=== PATIENT | male | born 1960 | race Two or more races ===

== ENCOUNTER 2016-05-20 16:08 | Inpatient (IN) | payer OTHER ==
[2016-05-20 16:28] VITALS: BMI 32.1
--- NOTE | 2016-05-20 17:06 | HP ---
CIWA Score - CIWA Score Nausea/Vomitin-Mild Nausea/No Vomiting Muscle Tremors: 4-Moderate,w/Arms Extend Anxiety: 4-Mod. Anxious/Guarded Agitation: 4-Moderately Restless Paroxysmal Sweats: 1-Minimal Palms Moist Orientation: 3-Disoriented Date>2 days Tacttile Disturbances: 0-None Auditory Disturbances: 0-None Visual Disturbances: 0-None Headache: 0-None Present CIWA-Ar Total Score: 17 Admission ROS S - HPI Chief Complaint: withdrawal sx Allergies/Adverse Reactions: Allergies Allergy/AdvReac Type Severity Reaction Status Date / Time tomato Allergy Severe Rash Verified 08/14/15 16:04 No Known Drug Allergies Allergy Verified 08/14/15 17:15 pasta Allergy Severe Rash Uncoded 08/14/15 16:04 History of Present Illness: 55 years old male with long history of alcohol nicotine dependence, denies medical issue denies mental illness is admitted to detox Exam Limitations: No Limitations - Ebola screening Have you traveled outside of the country in the last 21 days: No Have you had contact with anyone from an Ebola affected area: No Have you been sick,other than usual withdrawal symptoms: No Do you have a fever: No - Review of Systems Constitutional: Chills, Changes in sleep, Weight Stable EENT: reports: No Symptoms Reported Patient History - Patient Medical History Hx Asthma: No Hx Chronic Obstructive Pulmonary Disease (COPD): No Hx Cardiac Disorders: No Hx Hypertension: No Hx Seizures: No Hx Diabetes: Yes (Type II) Hx Gastrointestinal Disorders: No Hx Genitourinary Disorders: No Hx Renal Disease (ESRD): No Hx Depression: Yes Hx Suicide Attempt: No Hx Schizophrenia: No - Patient Surgical History Past Surgical History: Yes Other Surgical History: Two toes amputated from L foot in 2013 - PPD History Date: 08/16/15 - Smoking Cessation Smoking history: Current every day smoker Aproximately how many cigarettes per day: 10 Hx Chewing Tobacco Use: No - Substances Abused Alcohol Route: Oral Frequency: Daily Amount used: ashelyt nena Age of first use: 15 Date of Last Use: 05/20/16 Admission Physical Exam S - Vital Signs Vital Signs: Vital Signs - 24 hr 05/20/16 16:26 Temperature 98.6 F Pulse Rate 100 H Respiratory 18 Rate Blood Pressure 138/88 BHS Breath Alcohol Content Breath Alcohol Content: 0.109 Urine Drug Screen - Results Drug Screen Negative: No Urine Drug Screen Results: OPI-Opiates, MTD-Methadone
[2016-05-20] MEDS ORDERED: LOPERAMIDE HCL 2 MG CAPSULE PO PRN (17:13)
[2016-05-20] MEDS ORDERED: MENTHOL/PHENOL 1 EACH UD MM PRN (17:13)
[2016-05-20] MEDS ORDERED: MAG HYDROX/AL HYDROX/SIMETH 30 ML UNIT-DOSE CUP PO PRN (17:13)
[2016-05-20] MEDS ORDERED: P-EPHED 60MG/TRIPROLIDI 2.5MG TABLET PO PRN (17:13)
[2016-05-20] MEDS ORDERED: ACETAMINOPHEN 325 MG TABLET (FP) PO PRN (17:13)
[2016-05-20] MEDS ORDERED: chlordiazePOXIDE HCL 25 MG CAPSULE PO PRN (17:13)
[2016-05-20] MEDS ORDERED: MAGNESIUM HYDROX 2400MG/30ML ORAL SUSPENSION 30 ML CUP PO PRN (17:13)
[2016-05-20] MEDS ORDERED: MAGNESIUM CITRATE 300 ML BOTTLE PO PRN (17:13)
[2016-05-20] MEDS ORDERED: NICOTINE POLACRILEX 4 MG GUM BC PRN (17:13)
[2016-05-20] MEDS ORDERED: guaiFENesin/D-METHORPHAN HB 10 ML UNIT-DOSE CUPS PO PRN (17:13)
--- NOTE | 2016-05-20 17:13 | HP ---
CIWA Score - CIWA Score Nausea/Vomitin-Mild Nausea/No Vomiting Muscle Tremors: 4-Moderate,w/Arms Extend Anxiety: 4-Mod. Anxious/Guarded Agitation: 4-Moderately Restless Paroxysmal Sweats: 1-Minimal Palms Moist Orientation: 3-Disoriented Date>2 days Tacttile Disturbances: 0-None Auditory Disturbances: 0-None Visual Disturbances: 0-None Headache: 0-None Present CIWA-Ar Total Score: 17 Admission [facility] - HPI Chief Complaint: withdrawal sx Allergies/Adverse Reactions: Allergies Allergy/AdvReac Type Severity Reaction Status Date / Time tomato Allergy Severe Rash Verified 08/14/15 16:04 No Known Drug Allergies Allergy Verified 08/14/15 17:15 pasta Allergy Severe Rash Uncoded 08/14/15 16:04 History of Present Illness: 55 years old male with long history of alcohol nicotine opiate dependence, denies medical mental illness on methadone maintenance program 40 mg verification pending is admitted to detox Exam Limitations: No Limitations - Ebola screening Have you traveled outside of the country in the last 21 days: No Have you had contact with anyone from an Ebola affected area: No Have you been sick,other than usual withdrawal symptoms: No Do you have a fever: No - Review of Systems Constitutional: Chills, Changes in sleep, Weight Stable EENT: reports: No Symptoms Reported Respiratory: reports: No Symptoms reported Cardiac: reports: No Symptoms Reported GI: reports: Nausea, Indigestion : reports: No Symptoms Reported Musculoskeletal: reports: No Symptoms Reported Integumentary: reports: No Symptoms Reported Neuro: reports: Tremors Endocrine: reports: No Symptoms Reported Hematology: reports: No Symptoms Reported Psychiatric: reports: Judgement Intact, Mood/Affect Appropiate Other Systems: Reviewed and Negative Patient History - Patient Medical History Hx Anemia: No Hx Asthma: No Hx Chronic Obstructive Pulmonary Disease (COPD): No Hx Cancer: No Hx Cardiac Disorders: No Hx Congestive Heart Failure: No Hx Hypertension: No Hx Hypercholesterolemia: No Hx Pacemaker: No HX Cerebrovascular Accident: No Hx Seizures: No Hx Dementia: No Hx Diabetes: No Hx Gastrointestinal Disorders: No Hx Liver Disease: No Hx Genitourinary Disorders: No Hx Sexually Transmitted Disorders: No Hx Renal Disease (ESRD): No Hx Thyroid Disease: No Hx Human Immunodeficiency Virus (HIV): No Hx Hepatitis C: Yes Hx Depression: No Hx Suicide Attempt: No Hx Bipolar Disorder: No Hx Schizophrenia: No - Patient Surgical History Past Surgical History: Yes Hx Neurologic Surgery: No Hx Cataract Extraction: No Hx Cardiac Surgery: No Hx Lung Surgery: No Hx Breast Surgery: No Hx Breast Biopsy: No Hx Abdominal Surgery: No Hx Appendectomy: No Hx Cholecystectomy: No Hx Genitourinary Surgery: No Hx Orthopedic Surgery: No Other Surgical History: Two toes amputated from L foot in 2014 Anesthesia Reaction: No - PPD History Previous Implant?: Yes Documented Results: Negative w/proof Implanted On Prior R Admission?: Yes Date: 08/16/15 PPD to be Administered?: No - Smoking Cessation Smoking history: Current every day smoker Aproximately how many cigarettes per day: 15 Cigars Per Day: 0 Hx Chewing Tobacco Use: No Initiated information on smoking cessation: Yes 'Breaking Loose' booklet given: 05/20/16 - Substance & Tx. History Hx Alcohol Use: Yes Hx Substance Use: Yes Substance Use Type: Alcohol, Heroin, Opiates Hx Substance Use Treatment: Yes - Substances Abused Alcohol Route: Oral Frequency: Daily Amount used: pint volka Age of first use: 15 Date of Last Use: 05/20/16 Family Disease History - Family Disease History Family Disease History: [place]: Brother (), Other: Mother (93 years old ) Admission Physical Exam BHS - Vital Signs Vital Signs: Vital Signs - 24 hr 05/20/16 16:26 Temperature 98.6 F Pulse Rate 100 H Respiratory 18 Rate Blood Pressure 138/88 - Physical General Appearance: Yes: Appropriately Dressed, Moderate Distress, Alcohol on Breath, Obese, Tremorous, Irritable, Sweating, Anxious HEENTM: Yes: Hearing grossly Normal, Normal ENT Inspection, Normocephalic, Normal Voice Respiratory: Yes: Chest Non-Tender, Lungs Clear, Normal Breath Sounds, No Respiratory Distress, No Accessory Muscle Use Neck: Yes: Supple, Trachea in good position Breast: Yes: Breasts Symetrical Cardiology: Yes: Regular Rhythm, S1, S2, Tachycardia Abdominal: Yes: Non Tender, Soft Genitourinary: Yes: Within Normal Limits Back: Yes: Normal Inspection Musculoskeletal: Yes: Gait Steady (left foot 2nd + 3rd toes missing) Extremities: Yes: Normal Range of Motion, Non-Tender, Tremors Neurological: Yes: Alert, Motor Strength 5/5, Normal Mood/Affect, Normal Response Integumentary: Yes: Warm, Moist Lymphatic: Yes: Within Normal Limits - Diagnostic (1) GERD (gastroesophageal reflux disease) Current Visit: Yes Status: Acute Qualifiers: Esophagitis presence: without esophagitis Qualified Code(s): K21.9 - Gastro-esophageal reflux disease without esophagitis (2) Methadone maintenance therapy patient Current Visit: Yes Status: Acute Comment: 40 mg verification pending (3) Alcohol dependence with uncomplicated withdrawal Current Visit: Yes Status: Acute (4) Nicotine dependence Current Visit: Yes Status: Acute Qualifiers: Nicotine product type: cigarettes Substance use status: in withdrawal Qualified Code(s): F17.213 - Nicotine dependence, cigarettes, with withdrawal (5) Hepatitis C antibody test positive Current Visit: Yes Status: Chronic Comment: scheduled for treatment after rehab Cleared for Admission [facility] - Detox or Rehab [facility] Level of Care: Medically Managed Detox Regimen/Protocol: Librium [facility] Breath Alcohol Content Breath Alcohol Content: 0.109 Urine Drug Screen - Results Drug Screen Negative: No Urine Drug Screen Results: OPI-Opiates, MTD-Methadone
[2016-05-20] MEDS ORDERED: chlordiazePOXIDE HCL 25 MG CAPSULE PO ONE (18:45)
[2016-05-20] MEDS: chlordiazePOXIDE HCL 25 MG CAPSULE PO SCH (22:30)
[2016-05-20] MEDS: diphenhydrAMINE HCL 50 MG CAPSULE PO PRN (22:30)
[2016-05-20] MEDS: RANITIDINE HCL 150 MG TABLET (FP) PO SCH (22:30)
[2016-05-20] MEDS: THIAMINE HCL 100 MG TABLET (FP) PO SCH (22:30)
[2016-05-20 22:42] LABS: URINE APPEARANCE CLEAR; URINE BILIRUBIN NEGATIVE (NEGATIVE); URINE BLOOD NEGATIVE (NEGATIVE); URINE COLOR LTYELLOW; URINE GLUCOSE (UA) 3+ (NEGATIVE); URINE KETONE TRACE (NEGATIVE); URINE LEUK ESTERASE NEGATIVE (NEGATIVE); URINE NITRITE NEGATIVE (NEGATIVE); URINE UROBILINOGEN NEGATIVE E.U./dl (0.2-1.0)
[2016-05-20 22:47] LABS: URINE PROTEIN 1+ (NEGATIVE)
[2016-05-20 22:48] LABS: URINE BACTERIA RARE /hpf (NONE SEEN); URINE RBC <1 /hpf (0-3); URINE WBC 2 /hpf (3-5)
[2016-05-21] MEDS: chlordiazePOXIDE HCL 25 MG CAPSULE PO SCH ×4 (05:59→22:12)
[2016-05-21] MEDS ORDERED: METHADONE HCL 40 MG DISPERSABLE TABLET PO ONE (09:22)
[2016-05-21 10:03] LABS: MCH 29.6 pg (25.7-33.7); MEAN CELL VOLUME 89.9 fl (80-96); MEAN PLT VOLUME 9.9 fl (7.5-11.1); PLATELET COUNT 122 K/MM3 (134-434); WHITE BLOOD COUNT 5.3 K/mm3 (4.0-10.0)
[2016-05-21] MEDS: NICOTINE 21 MG/24 HOURS TOPICAL PATCH TD SCH (10:35)
[2016-05-21] MEDS: PRENATAL VITAMINS W/ FOLIC ACID TABLET (FP) PO SCH (10:37)
[2016-05-21] MEDS: RANITIDINE HCL 150 MG TABLET (FP) PO SCH ×2 (10:37→22:12)
--- NOTE | 2016-05-21 10:52 | PN ---
S CIWA - CIWA Score Nausea/Vomitin-No Nausea/No Vomiting Muscle Tremors: 4-Moderate,w/Arms Extend Anxiety: 3 Agitation: 4-Moderately Restless Paroxysmal Sweats: 3 Orientation: 0-Oriented Tacttile Disturbances: 0-None Auditory Disturbances: 0-None Visual Disturbances: 0-None Headache: 0-None Present CIWA-Ar Total Score: 14 BHS Progress Note (SOAP) Subjective: shakes sweats chills last night interrupted sleep Objective: 05/21/16 10:51 Vital Signs Temperature 98.2 F 05/21/16 10:18 Pulse Rate 83 05/21/16 10:18 Respiratory Rate 18 05/21/16 10:18 Blood Pressure 139/93 05/21/16 10:18 O2 Sat by Pulse Oximetry (%) Laboratory Tests 05/20/16 05/21/16 05/21/16 19:38 07:00 07:00 WBC 5.3 D RBC 4.86 Hgb 14.4 Hct 43.7 MCV 89.9 MCHC 33.0 RDW 14.0 Plt Count 122 L D MPV 9.9 Sodium 135 L Potassium 4.0 Chloride 99 Urine Color Ltyellow Urine Appearance Clear Urine pH 5.0 D Ur Specific [place] 1.029 Urine Protein 1+ H Urine Glucose (UA) 3+ H Urine Ketones Trace H Urine Blood Negative Urine Nitrite Negative Urine Bilirubin Negative Urine Urobilinogen Negative Ur Leukocyte Esterase Negative Urine RBC <1 Urine WBC 2 Ur Epithelial Cells Rare Urine Bacteria Rare awake/alert ambulating no acute distress Assessment: 05/21/16 10:52 withdrawal sx Plan: continue detox increase fluids
[2016-05-21 11:15] LABS: ALBUMIN 3.6 g/dl (3.4-5.0); ALK PHOS 122 U/L (45-117); ANION GAP 9 (8-16); BILIRUBIN,TOTAL 0.5 mg/dL (0.2-1.0); CALCIUM 9.3 mg/dL (8.5-10.1); CO2 27 mmol/L (21-32); CREATININE 0.8 mg/dL (0.7-1.3); SGOT/AST 23 U/L (15-37); SGPT/ALT 32 U/L (12-78); TOT PROT 7.6 g/dl (6.4-8.2)
[2016-05-21 11:38] LABS: GLUCOSE,RANDOM 329 mg/dL (74-106)
--- NOTE | 2016-05-21 13:55 | EKG ---
Test Reason : Blood Pressure : / mmHG Vent. Rate : 086 BPM Atrial Rate : 086 BPM P-R Int : 138 ms QRS Dur : 098 ms QT Int : 366 ms P-R-T Axes : 043 -10 -04 degrees QTc Int : 437 ms NORMAL SINUS RHYTHM MODERATE VOLTAGE CRITERIA FOR LVH, MAY BE NORMAL VARIANT BORDERLINE ECG NO PREVIOUS ECGS AVAILABLE Confirmed by ALFONSO STANLEY MD ([id number]) on 05/21/2016 1:54:59 PM Referred By: Deniz Chambers Confirmed By:ALFONSO STANLEY MD
[2016-05-21] MEDS ORDERED: INSULIN (NOVOLOG) ASPART 100 UNITS/ML 10ML VIAL ONE (16:41)
[2016-05-21] MEDS: INSULIN SLIDING SCALE (NOVOLOG) 1 VIAL SQ SCH (16:59)
[2016-05-21] MEDS: THIAMINE HCL 100 MG TABLET (FP) PO SCH (22:11)
[2016-05-21] MEDS: diphenhydrAMINE HCL 50 MG CAPSULE PO PRN (22:11)
[2016-05-22] MEDS: chlordiazePOXIDE HCL 25 MG CAPSULE PO SCH ×3 (05:31→17:44)
[2016-05-22] MEDS: METHADONE HCL 40 MG DISPERSABLE TABLET PO SCH (05:33)
[2016-05-22] MEDS ORDERED: INSULIN (NOVOLOG) ASPART 100 UNITS/ML 10ML VIAL ONE ×3 (07:09→17:39)
[2016-05-22] MEDS: INSULIN SLIDING SCALE (NOVOLOG) 1 VIAL SQ SCH ×3 (07:13→17:45)
[2016-05-22] MEDS ORDERED: AMMONIUM LACTATE 12% LOTION 225 GM BOTTLE TP PRN (10:31)
[2016-05-22] MEDS: NICOTINE 21 MG/24 HOURS TOPICAL PATCH TD SCH (10:32)
[2016-05-22] MEDS: RANITIDINE HCL 150 MG TABLET (FP) PO SCH ×2 (10:34→22:08)
[2016-05-22] MEDS: PRENATAL VITAMINS W/ FOLIC ACID TABLET (FP) PO SCH (10:34)
[2016-05-22] MEDS: BACITRACIN 0.9 GM PACKET TP SCH ×2 (12:01→22:08)
--- NOTE | 2016-05-22 12:03 | PN ---
[facility] CIWA - CIWA Score Nausea/Vomitin-Mild Nausea/No Vomiting Muscle Tremors: 4-Moderate,w/Arms Extend Anxiety: 4-Mod. Anxious/Guarded Agitation: 3 Paroxysmal Sweats: 3 Orientation: 0-Oriented Tacttile Disturbances: 2-Mild Itch/Numbness/Burn Auditory Disturbances: 0-None Visual Disturbances: 0-None Headache: 3-Moderate CIWA-Ar Total Score: 20 S Progress Note (SOAP) Subjective: Sweating, H/A, Tremors. Objective: PT. A & O X 3, OBSERVED AMBULATING NO UNIT. FOOT ULCER NOTED ON MEDIAL BALL OF LEFT FOOT. NO BLEEDING, UNUSUAL DISCHARGE, OR SIGNS OF INFECTION NOTED. 05/22/16 11:57 Vital Signs Temperature 98.2 F 05/22/16 09:50 Pulse Rate 88 05/22/16 09:50 Respiratory Rate 18 05/22/16 09:50 Blood Pressure 122/98 05/22/16 09:50 O2 Sat by Pulse Oximetry (%) Laboratory Last Values WBC 5.3 K/mm3 (4.0-10.0) D 05/21/16 07:00 RBC 4.86 M/mm3 (4.00-5.60) 05/21/16 07:00 Hgb 14.4 GM/dL (11.7-16.9) 05/21/16 07:00 Hct 43.7 % (35.4-49) 05/21/16 07:00 MCV 89.9 fl (80-96) 05/21/16 07:00 MCHC 33.0 g/dl (32.0-35.9) 05/21/16 07:00 RDW 14.0 % (11.9-15.9) 05/21/16 07:00 Plt Count 122 K/MM3 (134-434) L D 05/21/16 07:00 MPV 9.9 fl (7.5-11.1) 05/21/16 07:00 Sodium 135 mmol/L (136-145) L 05/21/16 07:00 Potassium 4.0 mmol/L (3.5-5.1) 05/21/16 07:00 Chloride 99 mmol/L (98-107) 05/21/16 07:00 Carbon Dioxide 27 mmol/L (21-32) 05/21/16 07:00 Anion Gap 9 (8-16) 05/21/16 07:00 BUN 15 mg/dL (7-18) 05/21/16 07:00 Creatinine 0.8 mg/dL (0.7-1.3) 05/21/16 07:00 Creat Clearance w eGFR > 60 (>60) 05/21/16 07:00 POC Glucometer 275 UNITS (()) 05/22/16 11:01 Random Glucose 329 mg/dL (74-106) H* D 05/21/16 07:00 Calcium 9.3 mg/dL (8.5-10.1) 05/21/16 07:00 Total Bilirubin 0.5 mg/dL (0.2-1.0) D 05/21/16 07:00 AST 23 U/L (15-37) 05/21/16 07:00 ALT 32 U/L (12-78) 05/21/16 07:00 Alkaline Phosphatase 122 U/L (45-117) H 05/21/16 07:00 Total Protein 7.6 g/dl (6.4-8.2) 05/21/16 07:00 Albumin 3.6 g/dl (3.4-5.0) 05/21/16 07:00 Urine Color Ltyellow 05/20/16 19:38 Urine Appearance Clear 05/20/16 19:38 Urine pH 5.0 (5.0-8.0) D 05/20/16 19:38 Ur Specific [place] 1.029 (1.001-1.035) 05/20/16 19:38 Urine Protein 1+ (NEGATIVE) H 05/20/16 19:38 Urine Glucose (UA) 3+ (NEGATIVE) H 05/20/16 19:38 Urine Ketones Trace (NEGATIVE) H 05/20/16 19:38 Urine Blood Negative (NEGATIVE) 05/20/16 19:38 Urine Nitrite Negative (NEGATIVE) 05/20/16 19:38 Urine Bilirubin Negative (NEGATIVE) 05/20/16 19:38 Urine Urobilinogen Negative E.U./dl (0.2-1.0) 05/20/16 19:38 Ur Leukocyte Esterase Negative (NEGATIVE) 05/20/16 19:38 Urine RBC <1 /hpf (0-3) 05/20/16 19:38 Urine WBC 2 /hpf (3-5) 05/20/16 19:38 Ur Epithelial Cells Rare /hpf (FEW) 05/20/16 19:38 Urine Bacteria Rare /hpf (NONE SEEN) 05/20/16 19:38 RPR Titer Nonreactive (NONREACTIVE) 05/21/16 07:00 LABS NOTED. Assessment: 05/22/16 11:59 WITHDRAWAL SYMPTOMS. Plan: CONTINUE DETOX. BACITRACIN TO APPLIED TO FOOT ULCER AND THEN COVERED WITH GAUZE. PATIENT ADVISED TO FOLLOW-UP WITH CALL CENTER DIRECTOR / MARKET CONSULTANT FOR FOOT ULCER AND WITH CALL CENTER DIRECTOR FOR ABNORMAL ADMISSION LAB VALUES AFTER DISCHARGE FROM DETOX.
[2016-05-22] MEDS: THIAMINE HCL 100 MG TABLET (FP) PO SCH (22:08)
[2016-05-22] MEDS: chlordiazePOXIDE 5 MG CAPSULE PO SCH (22:08)
[2016-05-22] MEDS: diphenhydrAMINE HCL 50 MG CAPSULE PO PRN (22:09)
--- NOTE | 2016-05-22 22:12 | PN ---
S Progress Note Note: received nurse call patient reports diabetes ii treated with metformin 500 mg bid at home change to ncs diet begin metformin 500 mg bid hgb a1c dietary consultation continue detox
[2016-05-23] MEDS: METHADONE HCL 40 MG DISPERSABLE TABLET PO SCH (05:42)
[2016-05-23] MEDS: chlordiazePOXIDE 5 MG CAPSULE PO SCH ×3 (05:42→17:20)
[2016-05-23] MEDS ORDERED: INSULIN (NOVOLOG) ASPART 100 UNITS/ML 10ML VIAL ONE ×3 (07:29→17:03)
[2016-05-23] MEDS: metFORMIN HCL 500 MG TABLET (FP) PO SCH ×2 (07:30→17:20)
[2016-05-23] MEDS: INSULIN SLIDING SCALE (NOVOLOG) 1 VIAL SQ SCH ×3 (07:31→17:20)
[2016-05-23] MEDS: PRENATAL VITAMINS W/ FOLIC ACID TABLET (FP) PO SCH (10:28)
[2016-05-23] MEDS: RANITIDINE HCL 150 MG TABLET (FP) PO SCH ×2 (10:29→22:22)
--- NOTE | 2016-05-23 10:30 | PN ---
BHS Progress Note (SOAP) Subjective: sweats shakes i need my wound care done Objective: 05/23/16 10:27 Vital Signs Temperature 97.3 F L 05/23/16 10:10 Pulse Rate 87 05/23/16 10:10 Respiratory Rate 18 05/23/16 10:10 Blood Pressure 134/96 05/23/16 10:10 O2 Sat by Pulse Oximetry (%) Laboratory Tests 05/20/16 05/21/16 05/21/16 19:38 07:00 07:00 WBC 5.3 D RBC 4.86 Hgb 14.4 Hct 43.7 MCV 89.9 MCHC 33.0 RDW 14.0 Plt Count 122 L D MPV 9.9 Sodium 135 L Potassium 4.0 Chloride 99 Carbon Dioxide 27 Anion Gap 9 BUN 15 Creatinine 0.8 Creat Clearance w eGFR > 60 POC Glucometer Random Glucose 329 H* D Calcium 9.3 Total Bilirubin 0.5 D AST 23 ALT 32 Alkaline Phosphatase 122 H Total Protein 7.6 Albumin 3.6 Urine Color Ltyellow Urine Appearance Clear Urine pH 5.0 D Ur Specific [place] 1.029 Urine Protein 1+ H Urine Glucose (UA) 3+ H Urine Ketones Trace H Urine Blood Negative Urine Nitrite Negative Urine Bilirubin Negative Urine Urobilinogen Negative Ur Leukocyte Esterase Negative Urine RBC <1 Urine WBC 2 Ur Epithelial Cells Rare Urine Bacteria Rare RPR Titer 05/21/16 05/21/16 05/22/16 07:00 16:12 05:33 WBC RBC Hgb Hct MCV MCHC RDW Plt Count MPV Sodium Potassium Chloride Carbon Dioxide Anion Gap BUN Creatinine Creat Clearance w eGFR POC Glucometer 349 338 Random Glucose Calcium Total Bilirubin AST ALT Alkaline Phosphatase Total Protein Albumin Urine Color Urine Appearance Urine pH Ur Specific [place] Urine Protein Urine Glucose (UA) Urine Ketones Urine Blood Urine Nitrite Urine Bilirubin Urine Urobilinogen Ur Leukocyte Esterase Urine RBC Urine WBC Ur Epithelial Cells Urine Bacteria RPR Titer Nonreactive 05/22/16 05/22/16 05/22/16 11:01 16:40 20:57 WBC RBC Hgb Hct MCV MCHC RDW Plt Count MPV Sodium Potassium Chloride Carbon Dioxide Anion Gap BUN Creatinine Creat Clearance w eGFR POC Glucometer 275 418 317 Random Glucose Calcium Total Bilirubin AST ALT Alkaline Phosphatase Total Protein Albumin Urine Color Urine Appearance Urine pH Ur Specific [place] Urine Protein Urine Glucose (UA) Urine Ketones Urine Blood Urine Nitrite Urine Bilirubin Urine Urobilinogen Ur Leukocyte Esterase Urine RBC Urine WBC Ur Epithelial Cells Urine Bacteria RPR Titer 05/23/16 05:40 WBC RBC Hgb Hct MCV MCHC RDW Plt Count MPV Sodium Potassium Chloride Carbon Dioxide Anion Gap BUN Creatinine Creat Clearance w eGFR POC Glucometer 304 Random Glucose Calcium Total Bilirubin AST ALT Alkaline Phosphatase Total Protein Albumin Urine Color Urine Appearance Urine pH Ur Specific [place] Urine Protein Urine Glucose (UA) Urine Ketones Urine Blood Urine Nitrite Urine Bilirubin Urine Urobilinogen Ur Leukocyte Esterase Urine RBC Urine WBC Ur Epithelial Cells Urine Bacteria RPR Titer awake/alert ambulating no acute distress Assessment: 05/23/16 10:28 withdrawal sx Plan: continue detox increase fluids continue wound care amoxicillan/cl 875mg x 14days d/c in am
[2016-05-23] MEDS: BACITRACIN 0.9 GM PACKET TP SCH ×2 (11:13→22:21)
[2016-05-23] MEDS: NICOTINE 21 MG/24 HOURS TOPICAL PATCH TD SCH (11:14)
[2016-05-23] MEDS: AMOX TR/POT CLAV 875MG/125MG TABLETS (FP) PO SCH (17:20)
[2016-05-23] MEDS: chlordiazePOXIDE HCL 10 MG CAPSULE PO SCH (22:21)
[2016-05-23] MEDS: diphenhydrAMINE HCL 50 MG CAPSULE PO PRN (22:22)
[2016-05-23] MEDS: THIAMINE HCL 100 MG TABLET (FP) PO SCH (22:22)
[2016-05-24] MEDS: METHADONE HCL 40 MG DISPERSABLE TABLET PO SCH (05:32)
[2016-05-24] MEDS: chlordiazePOXIDE HCL 10 MG CAPSULE PO SCH (05:33)
[2016-05-24 06:35] VITALS: BP 116/68; PULSE 68; TEMP 98.2
[2016-05-24] MEDS ORDERED: INSULIN (NOVOLOG) ASPART 100 UNITS/ML 10ML VIAL ONE (07:45)
[2016-05-24] MEDS: metFORMIN HCL 500 MG TABLET (FP) PO SCH (07:46)
[2016-05-24] MEDS: AMOX TR/POT CLAV 875MG/125MG TABLETS (FP) PO SCH (07:46)
[2016-05-24] MEDS: INSULIN SLIDING SCALE (NOVOLOG) 1 VIAL SQ SCH (07:47)
--- NOTE | 2016-05-24 08:16 | PN ---
S Progress Note (SOAP) Subjective: ALERT,NO COMPLAINT Objective: 05/24/16 08:14 Vital Signs Temperature 98.2 F 05/24/16 06:35 Pulse Rate 68 05/24/16 06:35 Respiratory Rate 18 05/24/16 06:35 Blood Pressure 116/68 05/24/16 06:35 O2 Sat by Pulse Oximetry (%) Assessment: 05/24/16 08:14 DETOX COMPLETED,NO WITHDRAWAL SYMPTOM Plan: DISCHARGE TODAY,FOLLOW UP WITH AFTER CARE PROGRAM AND PMD FOR MEDICAL PROBLEM
--- NOTE | 2016-05-24 08:18 | DS ---
[facility] Detox Discharge Summary Admission Date: 05/20/16 Discharge Date: 05/24/16 - History Present History: Alcohol Dependence, Cocaine Dependence Additional Comments: FOLLOW UP WITH AFTER CARE PROGRAM ARRANGEMENT AND PMD FOR MEDICAL PROBLEM INCLUDING DIABETIC AND HEPATITIS C EVALUATION AND MANAGEMENT Pertinent Past History: TYPE 2 DM HEPATITIS C GERD NICOTINE DEPENDENCE - Physical Exam Results Vital Signs: Vital Signs Temperature 98.2 F 05/24/16 06:35 Pulse Rate 68 05/24/16 06:35 Respiratory Rate 18 05/24/16 06:35 Blood Pressure 116/68 05/24/16 06:35 O2 Sat by Pulse Oximetry (%) - Treatment Hospital Course: Detox Protocol Followed, Detoxed Safely, Responded well, Discharged Condition Good Patient has Accepted a Rehab Referral to: DECLINED - Medication Discharge Medications: Ambulatory Orders Ibuprofen [Motrin -] 600 mg PO TID PRN 08/14/15 Omeprazole [Prilosec] 20 mg PO DAILY 08/14/15 Metformin HCl [Glucophage -] 1,000 mg PO BID 05/22/16 - AMA Did Patient Leave Against Medical Advice: No
== END 2016-05-24 09:16 | disposition home or self-care (01) | DRG 773 ==
LOC: YASAS 16:08 → Y6N 18:25
PROVIDERS: ADMIT Internal Medicine Addiction Medicine; ATTEND Internal Medicine Addiction Medicine
PROC: HZ2ZZZZ Detoxification Services for Substance Abuse Treatment (ICD-10-PCS; principal; 2016-05-24)
DX: F11.20 Opioid dependence, uncomplicated (principal); F10.230 Alcohol dependence with withdrawal, uncomplicated; F17.213 Nicotine dependence, cigarettes, with withdrawal; B18.2 Chronic viral hepatitis C; K21.9 Gastro-esophageal reflux disease without esophagitis
CPT/HCPCS: 36415; 80053; 81003; 81015; 83036; 85027; 86593; 93005; 93010

== ENCOUNTER 2018-11-29 13:32 | Inpatient (IN) | payer OTHER ==
[2018-11-29 17:51] VITALS: BMI 27.3
--- NOTE | 2018-11-29 20:30 | HP ---
COWS - Scale Resting Pulse: 0= [place] 80 or Below Sweatin=Flushed/Facial Moisture Restless Observation: 0= Sits Still Pupil Size: 1= Pupils >than Normal Bone or Joint Aches: 4=Acute Joint/Muscle Pain Runny Nose/ Eye Tearin= Runny Nose/Eyes GI Upset > 30mins: 3= Vomiting/Diarrhea (vomiting x 4, diarrhea x 2) Tremor Observation: 4= Gross Tremor/Twitching Yawning Observation: 0= None Anxiety or Irritability: 2=Irritable/Anxious Goose Flesh Skin: 0=Smooth Skin COWS Score: 18 CIWA Score Nausea/Vomitin (v omiting x 4) Muscle Tremors: 4-Moderate,w/Arms Extend Anxiety: 3 Agitation: 3 Paroxysmal Sweats: No Perspiration Orientation: 0-Oriented Tacttile Disturbances: 0-None Auditory Disturbances: 0-None Visual Disturbances: 0-None Headache: 4-Moderately Severe CIWA-Ar Total Score: 17 - Admission Criteria OASAS Guidelines: Admission for Medically Managed Detox: Requires at least one of the followin. CIWA greater than 12 2. Seizures within the past 24 hours 3. Delirium tremens within the past 24 hours 4. Hallucinations within the past 24 hours 5. Acute intervention needed for co occurring medical disorder 6. Acute intervention needed for co occurring psychiatric disorder 7. Severe withdrawal that cannot be handled at a lower level of care (continued vomiting, continued diarrhea, abnormal vital signs) requiring intravenous medication and/or fluids 8. Admission ROS [facility] Chief Complaint: Heroin and alcohol withdrawal symptoms Allergies/Adverse Reactions: Allergies Allergy/AdvReac Type Severity Reaction Status Date / Time tomato Allergy Severe Rash Verified 05/20/16 17:44 No Known Drug Allergies Allergy Verified 05/20/16 17:44 pasta Allergy Severe Rash Uncoded 05/20/16 17:44 History of Present Illness: 58 years old male with 37 years of heroin dependence and 45 years of alcohol dependence is seeking admission to detox. Patient has been in detox multiple times and reports 3 years of sobriety. Patient has history of hypertension, Hep. C and GERD. He denies [id number] attempt nd suicidal ideation at this time. Exam Limitations: No Limitations - Ebola screening Have you traveled outside of the country in the last 21 days: No Have you had contact with anyone from an Ebola affected area: No Have you been sick,other than usual withdrawal symptoms: No Do you have a fever: No - Review of Systems Constitutional: Chills, Malaise, Changes in sleep EENT: reports: No Symptoms Reported Respiratory: reports: No Symptoms reported Cardiac: reports: No Symptoms Reported GI: reports: Nausea, Poor Appetite, Poor Fluid Intake, Vomiting, Abdominal cramping : reports: No Symptoms Reported Musculoskeletal: reports: Back Pain, Joint Pain, Muscle Pain Integumentary: reports: Dryness, Flushing Neuro: reports: Headache, Tremors, Ataxia Hematology: reports: No Symptoms Reported Psychiatric: reports: Mood/Affect Appropiate, Orientated x3 Other Systems: Reviewed and Negative Patient History - Patient Medical History Hx Anemia: No Hx Asthma: No Hx Chronic Obstructive Pulmonary Disease (COPD): No Hx Cancer: No Hx Cardiac Disorders: No Hx Congestive Heart Failure: No Hx Hypertension: Yes Hx Hypercholesterolemia: No Hx Pacemaker: No HX Cerebrovascular Accident: No Hx Seizures: No Hx Dementia: No Hx Diabetes: No Hx Gastrointestinal Disorders: Yes (GERD- Fndto0g) Hx Liver Disease: No Hx Genitourinary Disorders: No Hx Sexually Transmitted Disorders: No Hx Renal Disease (ESRD): No Hx Thyroid Disease: No Hx Human Immunodeficiency Virus (HIV): No (Negative 2017) Hx Hepatitis C: Yes (Not on treatment) Hx Depression: No Hx Suicide Attempt: No (Denies suicide attempt / suicidal ideation at this time) Hx Bipolar Disorder: No Hx Schizophrenia: No - Patient Surgical History Past Surgical History: Yes Hx Neurologic Surgery: No Hx Cataract Extraction: No Hx Cardiac Surgery: No Hx Lung Surgery: No Hx Breast Surgery: No Hx Breast Biopsy: No Hx Abdominal Surgery: No Hx Appendectomy: No Hx Cholecystectomy: No Hx Genitourinary Surgery: No Hx Orthopedic Surgery: No Other Surgical History: Two toes amputated from L foot in 2014 Anesthesia Reaction: No - PPD History Previous Implant?: Yes Documented Results: Negative w/proof Implanted On Prior R Admission?: Yes Date: 08/16/15 PPD to be Administered?: Yes - Reproductive History Patient is a Female of Child Bearing Age (11 -55 yrs old): No (male) Patient : No - Smoking Cessation Smoking history: Current every day smoker Have you smoked in the past 12 months: Yes Aproximately how many cigarettes per day: 15 Cigars Per Day: 0 Hx Chewing Tobacco Use: No Initiated information on smoking cessation: Yes 'Breaking Loose' booklet given: 11/29/18 - Substance & Tx. History Hx Alcohol Use: Yes Hx Substance Use: Yes Substance Use Type: Alcohol, Cocaine, Heroin, Opiates Hx Substance Use Treatment: Yes ([facility]) - Substances abused Alcohol Frequency: Daily Amount used: 1 pint and 6 pack of beer Age of first use: 13 Date of last use: 11/29/18 Heroin Other (specify): sniff Frequency: Daily Amount used: 6 to 8 bags Age of first use: 21 Date of last use: 11/29/18 Family Disease History - Family Disease History Family Disease History: [place]: Brother (), Other: Mother (93 years old ) Admission Physical Exam [facility] - Vital Signs Vital Signs: Vital Signs - 24 hr 11/29/18 11/29/18 17:45 18:11 Temperature 97 F L 97 F L Pulse Rate 71 71 Respiratory 18 18 Rate Blood Pressure 121/74 121/74 - Physical General Appearance: Yes: Moderate Distress, Tremorous, Sweating, Anxious HEENTM: Yes: Within Normal Limits Respiratory: Yes: Lungs Clear, Normal Breath Sounds, No Respiratory Distress Neck: Yes: Supple Breast: Yes: Breast Exam Deferred Cardiology: Yes: Regular Rhythm, Regular Rate Abdominal: Yes: Normal Bowel Sounds, Soft Genitourinary: Yes: Within Normal Limits Back: Yes: Normal Inspection Musculoskeletal: Yes: Gait Steady, Back pain Extremities: Yes: Tremors Neurological: Yes: Within Normal Limits Integumentary: Yes: Warm Lymphatic: Yes: Within Normal Limits - Diagnostic (1) Hypertension Current Visit: Yes Status: Chronic Qualifiers: Hypertension type: essential hypertension Qualified Code(s): I10 - Essential (primary) hypertension (2) Alcohol dependence with uncomplicated withdrawal Current Visit: Yes Status: Chronic (3) GERD (gastroesophageal reflux disease) Current Visit: Yes Status: Chronic Qualifiers: Esophagitis presence: without esophagitis Qualified Code(s): K21.9 - Gastro -esophageal reflux disease without esophagitis (4) Cocaine dependence Current Visit: Yes Status: Chronic Qualifiers: Substance use status: uncomplicated Qualified Code(s): F14.20 - Cocaine dependence, uncomplicated (5) Hepatitis C antibody test positive Current Visit: Yes Status: Chronic Comment: scheduled for treatment after rehab Cleared for Admission [facility] - Detox or Rehab [facility] Level of Care: Medically Managed Detox Regimen/Protocol: Methadone/Librium Breathalyzer - Breathalyzer Breathalyzer: 0.024 Urine Drug Screen - Test Device Lot number: [id number] Expiration date: 08/20/20 - Control Is test valid?: Yes - Results Drug screen NEGATIVE: No Urine drug screen results: FARZAD-Cocaine, FEN-Fentanyl, MOP-Opiates, OXY-Oxycodone Inpatient Rehab Admission - Rehab Decision to Admit Inpatient rehab admission?: No
[2018-11-29] MEDS ORDERED: MENTHOL/PHENOL 1 EACH UD MM PRN (20:43)
[2018-11-29] MEDS ORDERED: ACETAMINOPHEN 325 MG TABLET (FP) PO PRN ×2 (20:43)
[2018-11-29] MEDS ORDERED: METHOCARBAMOL 500 MG TABLET PO PRN (20:43)
[2018-11-29] MEDS ORDERED: MELATONIN 5 MG TABLETS PO PRN (20:43)
[2018-11-29] MEDS ORDERED: hydrOXYzine PAMOATE 25 MG CAPSULE (FP) PO PRN (20:43)
[2018-11-29] MEDS ORDERED: chlordiazePOXIDE HCL 25 MG CAPSULE PO PRN (20:43)
[2018-11-29] MEDS ORDERED: MAGNESIUM HYDROX 2400MG/30ML ORAL SUSPENSION 30 ML CUP PO PRN (20:43)
[2018-11-29] MEDS ORDERED: MAG HYDROX/AL HYDROX/SIMETH 30 ML UNIT-DOSE CUP PO PRN (20:43)
[2018-11-29] MEDS ORDERED: MAGNESIUM CITRATE 300 ML BOTTLE PO PRN (20:43)
[2018-11-29] MEDS ORDERED: BISMUTH SUBSALICYLATE 524 MG/30 ML UD PO PRN (20:43)
[2018-11-29] MEDS ORDERED: IBUPROFEN 400 MG TABLET (FP) PO PRN (20:43)
[2018-11-29] MEDS ORDERED: cloNIDine HCL 0.1 MG TABLET PO PRN (20:43)
[2018-11-29] MEDS ORDERED: NICOTINE POLACRILEX 2 MG GUM BUC PRN (20:46)
[2018-11-29] MEDS ORDERED: METHADONE HCL 10 MG TABLET (FOR DETOX USE ONLY) PO ONE (20:50)
[2018-11-29] MEDS ORDERED: BACITRACIN 15 GM TUBE TOPICAL OINTMENT TP SCH (22:00)
[2018-11-29] MEDS: chlordiazePOXIDE HCL 25 MG CAPSULE PO SCH (22:22)
[2018-11-29] MEDS: THIAMINE HCL 100 MG TABLET (FP) PO SCH (22:24)
[2018-11-29] MEDS: BACITRACIN 0.9 GM PACKET TP SCH (22:56)
[2018-11-30] MEDS: chlordiazePOXIDE HCL 25 MG CAPSULE PO SCH ×5 (06:31→22:05)
[2018-11-30] MEDS ORDERED: METHADONE HCL 10 MG TABLET (FOR DETOX USE ONLY) ONE (08:18)
[2018-11-30] MEDS ORDERED: METHADONE HCL 5 MG TABLET (FOR DETOX USE ONLY) ONE (08:19)
[2018-11-30] MEDS ORDERED: METHADONE (DETOX) 20 MG, METHADONE (DETOX) 5 MG PO ONE (10:00)
[2018-11-30 10:06] LABS: MCH 28.7 pg (25.7-33.7); MCHC 33.2 g/dl (32.0-35.9); MEAN CELL VOLUME 86.4 fl (80-96); MEAN PLT VOLUME 8.8 fl (7.5-11.1); PLATELET COUNT 218 K/MM3 (134-434); RBC 4.51 M/mm3 (4.00-5.60); RDW 14.1 % (11.9-15.9); WHITE BLOOD COUNT 5.8 K/mm3 (4.0-10.0)
[2018-11-30 10:15] LABS: ALBUMIN 2.5 g/dl (3.4-5.0); BILIRUBIN,TOTAL 0.4 mg/dL (0.2-1); BLOOD UREA NITROGEN 16.9 mg/dL (7-18); CREATININE 0.9 mg/dL (0.55-1.3); POTASSIUM 4.3 mmol/L (3.5-5.1); TOT PROT 7.3 g/dl (6.4-8.2)
[2018-11-30] MEDS: NICOTINE 14 MG/24 HOURS TOPICAL PATCH TD SCH (10:28)
[2018-11-30] MEDS: BACITRACIN 0.9 GM PACKET TP SCH ×2 (10:28→22:04)
[2018-11-30] MEDS: PRENATAL VITAMINS W/ FOLIC ACID TABLET (FP) PO SCH (10:28)
--- NOTE | 2018-11-30 12:19 | PN ---
[facility] CIWA - CIWA Score Nausea/Vomitin-Mild Nausea/No Vomiting Muscle Tremors: 2 Anxiety: 3 Agitation: 3 Paroxysmal Sweats: 1-Minimal Palms Moist Orientation: 0-Oriented Tacttile Disturbances: 1-Very Mild Itch/Numbness Auditory Disturbances: 0-None Visual Disturbances: 0-None Headache: 2-Mild CIWA-Ar Total Score: 13 BHS COWS - Scale Resting Pulse: 0= [place] 80 or Below Sweatin= No chills or Flushing Restless Observation: 1= Difficult to Sit Still Pupil Size: 1= Pupils >than Normal Bone or Joint Aches: 1= Mild Discomfort Runny Nose/ Eye Tearin= Nasal Congestion GI Upset > 30mins: 2= Nausea/Diarrhea Tremor Observation of Outstretched Hands: 1= Tremor [place], Not Seen Yawning Observation: 1= 1-2x During Session Anxiety or Irritability: 2=Irritable/Anxious Goose Flesh Skin: 0=Smooth Skin COWS Score: 10 [facility] Progress Note (SOAP) Subjective: alert,irritable,anxious,irritable,pain in the body,back,tremor Objective: 11/30/18 12:16 Vital Signs Temperature 97.1 F L 11/30/18 09:07 Pulse Rate 63 11/30/18 09:07 Respiratory Rate 18 11/30/18 09:07 Blood Pressure 117/63 11/30/18 09:07 O2 Sat by Pulse Oximetry (%) Laboratory Last Values WBC 5.8 K/mm3 (4.0-10.0) 11/30/18 08:00 RBC 4.51 M/mm3 (4.00-5.60) 11/30/18 08:00 Hgb 13.0 GM/dL (11.7-16.9) 11/30/18 08:00 Hct 39.0 % (35.4-49) 11/30/18 08:00 MCV 86.4 fl (80-96) 11/30/18 08:00 MCH 28.7 pg (25.7-33.7) 11/30/18 08:00 MCHC 33.2 g/dl (32.0-35.9) 11/30/18 08:00 RDW 14.1 % (11.9-15.9) 11/30/18 08:00 Plt Count 218 K/MM3 (134-434) D 11/30/18 08:00 MPV 8.8 fl (7.5-11.1) D 11/30/18 08:00 Sodium 141 mmol/L (136-145) 11/30/18 08:00 Potassium 4.3 mmol/L (3.5-5.1) 11/30/18 08:00 Chloride 103 mmol/L (98-107) 11/30/18 08:00 Carbon Dioxide 30 mmol/L (21-32) 11/30/18 08:00 Anion Gap 8 MMOL/L (8-16) 11/30/18 08:00 BUN 16.9 mg/dL (7-18) 11/30/18 08:00 Creatinine 0.9 mg/dL (0.55-1.3) 11/30/18 08:00 Est GFR (CKD-EPI)AfAm 109.50 11/30/18 08:00 Est GFR (CKD-EPI)NonAf 94.48 11/30/18 08:00 Random Glucose 170 mg/dL (74-106) H 11/30/18 08:00 Calcium 9.0 mg/dL (8.5-10.1) 11/30/18 08:00 Total Bilirubin 0.4 mg/dL (0.2-1) 11/30/18 08:00 AST 26 U/L (15-37) 11/30/18 08:00 ALT 31 U/L (13-61) 11/30/18 08:00 Alkaline Phosphatase 134 U/L (45-117) H 11/30/18 08:00 Total Protein 7.3 g/dl (6.4-8.2) 11/30/18 08:00 Albumin 2.5 g/dl (3.4-5.0) L 11/30/18 08:00 RPR Titer Nonreactive (NONREACTIVE) 11/30/18 08:00 Assessment: 11/30/18 12:18 withdrawal symptom Plan: continue detox,methadone and librium regimen,fasting glucose in am,bgm monitoring,initial glucose is 170
[2018-11-30] MEDS: RANITIDINE HCL 150 MG TABLET (FP) PO SCH ×2 (13:01→22:05)
[2018-11-30] MEDS: THIAMINE HCL 100 MG TABLET (FP) PO SCH (22:05)
[2018-12-01] MEDS: chlordiazePOXIDE HCL 25 MG CAPSULE PO SCH ×4 (05:26→22:13)
[2018-12-01 09:50] LABS: EPI CELLS 0.9 /HPF (0-5/HPF); HYALINE CASTS 1 /lpf (0-8); PH,URINE 7.5 (5.0-8.0); URINE APPEARANCE CLEAR; URINE BACTERIA 32.6 /hpf (NEGATIVE); URINE BILIRUBIN NEGATIVE (NEGATIVE); URINE COLOR YELLOW; URINE GLUCOSE (UA) NEGATIVE (NEGATIVE); URINE KETONE NEGATIVE (NEGATIVE); URINE LEUK ESTERASE NEGATIVE (NEGATIVE); URINE NITRITE NEGATIVE (NEGATIVE); URINE PROTEIN 1+ (NEGATIVE); URINE RBC 1 /hpf (0-4); URINE WBC 0 /hpf (0-5)
[2018-12-01] MEDS ORDERED: METHADONE HCL 10 MG TABLET (FOR DETOX USE ONLY) PO ONE (10:00)
[2018-12-01] MEDS: PRENATAL VITAMINS W/ FOLIC ACID TABLET (FP) PO SCH (10:23)
[2018-12-01] MEDS: NICOTINE 14 MG/24 HOURS TOPICAL PATCH TD SCH (10:23)
[2018-12-01] MEDS: RANITIDINE HCL 150 MG TABLET (FP) PO SCH ×2 (10:23→22:13)
[2018-12-01] MEDS: BACITRACIN 0.9 GM PACKET TP SCH ×2 (10:25→22:13)
--- NOTE | 2018-12-01 11:33 | EKG ---
Test Reason : Blood Pressure : / mmHG Vent. Rate : 063 BPM Atrial Rate : 063 BPM P-R Int : 148 ms QRS Dur : 100 ms QT Int : 406 ms P-R-T Axes : 021 002 000 degrees QTc Int : 415 ms NORMAL SINUS RHYTHM MINIMAL VOLTAGE CRITERIA FOR LVH, MAY BE NORMAL VARIANT BORDERLINE ECG WHEN COMPARED WITH ECG OF 20-MAY-2016 18:57, NO SIGNIFICANT CHANGE WAS FOUND Confirmed by LIZETH HASKINS, ALFONSO ([id number]) on 12/01/2018 11:33:09 AM Referred By: ZOYA HECK Confirmed By:ALFONSO STANLEY MD
--- NOTE | 2018-12-01 13:53 | PN ---
S CIWA - CIWA Score Nausea/Vomitin-Mild Nausea/No Vomiting Muscle Tremors: 2 Anxiety: 1-Mildly Anxious Agitation: 2 Paroxysmal Sweats: 1-Minimal Palms Moist Orientation: 0-Oriented Tacttile Disturbances: 1-Very Mild Itch/Numbness Auditory Disturbances: 0-None Visual Disturbances: 0-None Headache: 0-None Present CIWA-Ar Total Score: 8 BHS COWS - Scale Resting Pulse: 0= [place] 80 or Below Sweatin= Chills/Flushing Restless Observation: 0= Sits Still Pupil Size: 0= Normal to Room Light Bone or Joint Aches: 1= Mild Discomfort Runny Nose/ Eye Tearin= Nasal Congestion GI Upset > 30mins: 1= Stomach Cramp Tremor Observation of Outstretched Hands: 2= Slight Tremor Visible Yawning Observation: 1= 1-2x During Session Anxiety or Irritability: 1=Feels Anxious/Irritable Goose Flesh Skin: 0=Smooth Skin COWS Score: 8 BHS Progress Note (SOAP) Subjective: doing well with librium and methadone detox regimen less tremor mild anxiety sleep better at night worry about right groin "pump" palpated yesterday while in shower patient is unable to locate the "pump" today history of ventral hernia surgically repaired " years ago" denies complication patient is alert acknowledge preventive services such as colonoscopy discuss risks of health issues related to alcohol and opiate misuse Objective: 12/01/18 13:54 Vital Signs Temperature 97.9 F 12/01/18 13:42 Pulse Rate 50 L 12/01/18 13:42 Respiratory Rate 18 12/01/18 13:42 Blood Pressure 159/89 12/01/18 13:42 O2 Sat by Pulse Oximetry (%) Laboratory Last Values WBC 5.8 K/mm3 (4.0-10.0) 11/30/18 08:00 RBC 4.51 M/mm3 (4.00-5.60) 11/30/18 08:00 Hgb 13.0 GM/dL (11.7-16.9) 11/30/18 08:00 Hct 39.0 % (35.4-49) 11/30/18 08:00 MCV 86.4 fl (80-96) 11/30/18 08:00 MCH 28.7 pg (25.7-33.7) 11/30/18 08:00 MCHC 33.2 g/dl (32.0-35.9) 11/30/18 08:00 RDW 14.1 % (11.9-15.9) 11/30/18 08:00 Plt Count 218 K/MM3 (134-434) D 11/30/18 08:00 MPV 8.8 fl (7.5-11.1) D 11/30/18 08:00 Sodium 141 mmol/L (136-145) 11/30/18 08:00 Potassium 4.3 mmol/L (3.5-5.1) 11/30/18 08:00 Chloride 103 mmol/L (98-107) 11/30/18 08:00 Carbon Dioxide 30 mmol/L (21-32) 11/30/18 08:00 Anion Gap 8 MMOL/L (8-16) 11/30/18 08:00 BUN 16.9 mg/dL (7-18) 11/30/18 08:00 Creatinine 0.9 mg/dL (0.55-1.3) 11/30/18 08:00 Est GFR (CKD-EPI)AfAm 109.50 11/30/18 08:00 Est GFR (CKD-EPI)NonAf 94.48 11/30/18 08:00 POC Glucometer 224 UNITS (80-120) 12/01/18 05:28 Random Glucose 170 mg/dL (74-106) H 11/30/18 08:00 Fasting Glucose 141 mg/dL (74-106) H 12/01/18 09:00 Calcium 9.0 mg/dL (8.5-10.1) 11/30/18 08:00 Total Bilirubin 0.4 mg/dL (0.2-1) 11/30/18 08:00 AST 26 U/L (15-37) 11/30/18 08:00 ALT 31 U/L (13-61) 11/30/18 08:00 Alkaline Phosphatase 134 U/L (45-117) H 11/30/18 08:00 Total Protein 7.3 g/dl (6.4-8.2) 11/30/18 08:00 Albumin 2.5 g/dl (3.4-5.0) L 11/30/18 08:00 Urine Color Yellow 11/30/18 15:51 Urine Appearance Clear 11/30/18 15:51 Urine pH 7.5 (5.0-8.0) D 11/30/18 15:51 Ur Specific [place] 1.023 (1.010-1.035) 11/30/18 15:51 Urine Protein 1+ (NEGATIVE) H 11/30/18 15:51 Urine Glucose (UA) Negative (NEGATIVE) 11/30/18 15:51 Urine Ketones Negative (NEGATIVE) 11/30/18 15:51 Urine Blood Negative (NEGATIVE) 11/30/18 15:51 Urine Nitrite Negative (NEGATIVE) 11/30/18 15:51 Urine Bilirubin Negative (NEGATIVE) 11/30/18 15:51 Urine Urobilinogen 1.0 mg/dL (0.2-1.0) 11/30/18 15:51 Ur Leukocyte Esterase Negative (NEGATIVE) 11/30/18 15:51 Urine WBC (Auto) 0 /hpf (0-5) 11/30/18 15:51 Urine RBC (Auto) 1 /hpf (0-4) 11/30/18 15:51 Urine Casts (Auto) 1 /lpf (0-8) 11/30/18 15:51 U Epithel Cells (Auto) 0.9 /HPF (0-5/HPF) 11/30/18 15:51 Urine Bacteria (Auto) 32.6 /hpf (NEGATIVE) 11/30/18 15:51 RPR Titer Nonreactive (NONREACTIVE) 11/30/18 08:00 lab noted 12/01/18 13:56 bp elevation history of hypetension begin lisinopril 10 mg po od Assessment: 12/01/18 13:56 alcohol and opiate withdrawal sx Plan: continue librium and methadone detox regimen
[2018-12-01] MEDS: LISINOPRIL 10 MG TABLET (FP) PO SCH (15:19)
[2018-12-01] MEDS: THIAMINE HCL 100 MG TABLET (FP) PO SCH (22:13)
[2018-12-02] MEDS ORDERED: chlordiazePOXIDE HCL 10 MG CAPSULE PO PRN
[2018-12-02] MEDS: chlordiazePOXIDE HCL 10 MG CAPSULE PO SCH ×2 (05:40→10:05)
[2018-12-02] MEDS ORDERED: METHADONE HCL 10 MG TABLET (FOR DETOX USE ONLY) ONE (08:36)
[2018-12-02] MEDS ORDERED: METHADONE HCL 5 MG TABLET (FOR DETOX USE ONLY) ONE (08:36)
[2018-12-02 09:10] VITALS: BP 136/77; PULSE 47; TEMP 96.8
[2018-12-02] MEDS ORDERED: METHADONE (DETOX) 10 MG, METHADONE (DETOX) 5 MG PO ONE (10:00)
[2018-12-02] MEDS: LISINOPRIL 10 MG TABLET (FP) PO SCH (10:05)
[2018-12-02] MEDS: PRENATAL VITAMINS W/ FOLIC ACID TABLET (FP) PO SCH (10:05)
[2018-12-02] MEDS: NICOTINE 14 MG/24 HOURS TOPICAL PATCH TD SCH (10:06)
[2018-12-02] MEDS: RANITIDINE HCL 150 MG TABLET (FP) PO SCH (10:08)
[2018-12-02] MEDS: BACITRACIN 0.9 GM PACKET TP SCH (10:10)
[2018-12-02] MEDS ORDERED: BACITRACIN 15 GM TUBE TOPICAL OINTMENT TP SCH (10:50)
--- NOTE | 2018-12-02 13:53 | DS ---
[facility] Detox Discharge Summary Admission Date: 11/29/18 Discharge Date: 12/02/18 - History Present History: Alcohol Dependence, Opioid Dependence Additional Comments: 58 years old male admitted on 11/29/18 for alcohol witdrawal sx management dong well with libruim and methadone detox regimen no complication through out the detox stay patient is alert oriented x 3 denies dizziness ambulating steady gait no shortness of breath denies pain - Physical Exam Results Vital Signs: Vital Signs Temperature 96.8 F L 12/02/18 09:09 Pulse Rate 47 L 12/02/18 09:09 Respiratory Rate 18 12/02/18 09:09 Blood Pressure 136/77 12/02/18 09:09 O2 Sat by Pulse Oximetry (%) Pertinent Admission Physical Exam Findings: alcohol and opiate withdrawal sx Laboratory Last Values WBC 5.8 K/mm3 (4.0-10.0) 11/30/18 08:00 RBC 4.51 M/mm3 (4.00-5.60) 11/30/18 08:00 Hgb 13.0 GM/dL (11.7-16.9) 11/30/18 08:00 Hct 39.0 % (35.4-49) 11/30/18 08:00 MCV 86.4 fl (80-96) 11/30/18 08:00 MCH 28.7 pg (25.7-33.7) 11/30/18 08:00 MCHC 33.2 g/dl (32.0-35.9) 11/30/18 08:00 RDW 14.1 % (11.9-15.9) 11/30/18 08:00 Plt Count 218 K/MM3 (134-434) D 11/30/18 08:00 MPV 8.8 fl (7.5-11.1) D 11/30/18 08:00 Sodium 141 mmol/L (136-145) 11/30/18 08:00 Potassium 4.3 mmol/L (3.5-5.1) 11/30/18 08:00 Chloride 103 mmol/L (98-107) 11/30/18 08:00 Carbon Dioxide 30 mmol/L (21-32) 11/30/18 08:00 Anion Gap 8 MMOL/L (8-16) 11/30/18 08:00 BUN 16.9 mg/dL (7-18) 11/30/18 08:00 Creatinine 0.9 mg/dL (0.55-1.3) 11/30/18 08:00 Est GFR (CKD-EPI)AfAm 109.50 11/30/18 08:00 Est GFR (CKD-EPI)NonAf 94.48 11/30/18 08:00 POC Glucometer 227 UNITS (80-120) 12/02/18 05:41 Random Glucose 170 mg/dL (74-106) H 11/30/18 08:00 Fasting Glucose 141 mg/dL (74-106) H 12/01/18 09:00 Calcium 9.0 mg/dL (8.5-10.1) 11/30/18 08:00 Total Bilirubin 0.4 mg/dL (0.2-1) 11/30/18 08:00 AST 26 U/L (15-37) 11/30/18 08:00 ALT 31 U/L (13-61) 11/30/18 08:00 Alkaline Phosphatase 134 U/L (45-117) H 11/30/18 08:00 Total Protein 7.3 g/dl (6.4-8.2) 11/30/18 08:00 Albumin 2.5 g/dl (3.4-5.0) L 11/30/18 08:00 Urine Color Yellow 11/30/18 15:51 Urine Appearance Clear 11/30/18 15:51 Urine pH 7.5 (5.0-8.0) D 11/30/18 15:51 Ur Specific [place] 1.023 (1.010-1.035) 11/30/18 15:51 Urine Protein 1+ (NEGATIVE) H 11/30/18 15:51 Urine Glucose (UA) Negative (NEGATIVE) 11/30/18 15:51 Urine Ketones Negative (NEGATIVE) 11/30/18 15:51 Urine Blood Negative (NEGATIVE) 11/30/18 15:51 Urine Nitrite Negative (NEGATIVE) 11/30/18 15:51 Urine Bilirubin Negative (NEGATIVE) 11/30/18 15:51 Urine Urobilinogen 1.0 mg/dL (0.2-1.0) 11/30/18 15:51 Ur Leukocyte Esterase Negative (NEGATIVE) 11/30/18 15:51 Urine WBC (Auto) 0 /hpf (0-5) 11/30/18 15:51 Urine RBC (Auto) 1 /hpf (0-4) 11/30/18 15:51 Urine Casts (Auto) 1 /lpf (0-8) 11/30/18 15:51 U Epithel Cells (Auto) 0.9 /HPF (0-5/HPF) 11/30/18 15:51 Urine Bacteria (Auto) 32.6 /hpf (NEGATIVE) 11/30/18 15:51 RPR Titer Nonreactive (NONREACTIVE) 11/30/18 08:00 TB (QFT) Incubation (.) 11/30/18 08:00 TB Test (QFT) Nil 0.02 IU/mL (.) 11/30/18 08:00 TB Test (QFT) Mitogen 1.27 IU/mL (.) 11/30/18 08:00 TB Test (QFT) Antigen 0.02 IU/mL (.) 11/30/18 08:00 TB Test (QFT) Negative (Negative) 11/30/18 08:00 TB Positive Criteria (.) 11/30/18 08:00 lab noted - Treatment Hospital Course: Detox Protocol Followed, Detoxed Safely, Responded well, Discharged Condition Good, Rehab Referral Accepted Patient has Accepted a Rehab Referral to: [facility] - Medication Discharge Medications: Ambulatory Orders Ranitidine [Zantac -] 150 mg PO BID #60 tablet 05/24/16 - Diagnosis (1) Uncomplicated opioid dependence Status: Acute (2) Diabetes mellitus, type II, insulin dependent Status: Chronic (3) Nicotine dependence Status: Acute Qualifiers: Nicotine product type: cigarettes Substance use status: in withdrawal Qualified Code(s): F17.213 - Nicotine dependence, cigarettes, with withdrawal (4) Alcohol dependence with uncomplicated withdrawal Status: Acute (5) GERD (gastroesophageal reflux disease) Status: Chronic Qualifiers: Esophagitis presence: without esophagitis Qualified Code(s): K21.9 - Gastro -esophageal reflux disease without esophagitis (6) Hepatitis C antibody test positive Status: Chronic (7) Hypertension Status: Chronic Qualifiers: Hypertension type: essential hypertension Qualified Code(s): I10 - Essential (primary) hypertension - AMA Did Patient Leave Against Medical Advice: No CIWA Score - CIWA Score Nausea/Vomitin-No Nausea/No Vomiting Muscle Tremors: 2 Anxiety: 1-Mildly Anxious Agitation: 1-Slight > Activity Paroxysmal Sweats: No Perspiration Orientation: 0-Oriented Tacttile Disturbances: 1-Very Mild Itch/Numbness Auditory Disturbances: 0-None Visual Disturbances: 0-None Headache: 0-None Present CIWA-Ar Total Score: 5 COWS (PN) - Opiate Withdrawal Resting Pulse: 0= [place] 80 or Below Sweatin= Chills/Flushing Restless Observation: 0= Sits Still Pupil Size: 0= Normal to Room Light Bone or Joint Aches: 1= Mild Discomfort Runny Nose/ Eye Tearin= None GI Upset > 30mins: 0= None Tremor Observation of Outstretched Hands: 1= Tremor [place], Not Seen Yawning Observation: 0= None Anxiety or Irritability: 1=Feels Anxious/Irritable Goose Flesh Skin: 0=Smooth Skin COWS Score: 4
[2018-12-03] MEDS ORDERED: chlordiazePOXIDE HCL 10 MG CAPSULE PO SCH (05:00)
[2018-12-03] MEDS ORDERED: METHADONE HCL 10 MG TABLET (FOR DETOX USE ONLY) PO ONE (10:00)
[2018-12-04] MEDS ORDERED: chlordiazePOXIDE HCL 10 MG CAPSULE PO ONE (05:00)
[2018-12-04] MEDS ORDERED: METHADONE HCL 5 MG TABLET (FOR DETOX USE ONLY) PO ONE (06:00)
== END 2018-12-02 11:05 | disposition home or self-care (01) | DRG 773 ==
LOC: YASAS 13:32 → Y3N 20:31
PROVIDERS: ADMIT Surgery; ATTEND Surgery
PROC: HZ2ZZZZ Detoxification Services for Substance Abuse Treatment (ICD-10-PCS; principal; 2018-11-29)
DX: F11.23 Opioid dependence with withdrawal (principal); F10.230 Alcohol dependence with withdrawal, uncomplicated; F17.213 Nicotine dependence, cigarettes, with withdrawal; I10 Essential (primary) hypertension; E11.9 Type 2 diabetes mellitus without complications; K21.9 Gastro-esophageal reflux disease without esophagitis; B18.2 Chronic viral hepatitis C; Z89.422 Acquired absence of other left toe(s); Z79.4 Long term (current) use of insulin
CPT/HCPCS: 36415; 80053; 81003; 82947; 82962; 85027; 86480; 86593; 93005; 93010; J0735

== ENCOUNTER 2019-05-10 13:07 | Inpatient (IN) | payer OTHER ==
--- NOTE | 2019-05-10 13:49 | BHS.RME ---
Substance Use & Tx History - Substance Use History Opiates (Heroin) Substance amount: 4-6 bags Frequency of use: Daily Substance route: Inhalation (ex: sniffing or snorting) Date of Last Use: 05/09/19 Alcohol Substance amount: 1/2 pint and 6 pack beer Frequency of use: Daily Substance route: Oral Date of Last Use: 05/09/19 (9am) - Last Treatment Date of last treatment: 11/2018 and left [facility] Treatment type: Substance Use Disorder (ZHANG) Where was last treatment: Detox Physical/Psych/Mental Status - Behavior General Behavior: Increased activity (restlessness, agitation) Eye Contact: Normal - Cooperativeness Cooperativeness: Cooperative - Thinking Thought Processes: Tight, Logical, Goal Directed Thought content: Future oriented - Physical Health Problems Is patient presently having any pain?: No Does patient presently have any injuries (include location): No Does patient currently have a fever: No Is patient : No COWS - Scale Resting Pulse: 0= [place] 80 or Below Sweatin= Beads of Sweat on Face Restless Observation: 1= Difficult to Sit Still Pupil Size: 1= Pupils >than Normal Bone or Joint Aches: 4=Acute Joint/Muscle Pain Runny Nose/ Eye Tearin= Runny Nose/Eyes GI Upset > 30mins: 2= Nausea/Diarrhea Tremor Observation: 1= Tremor [place], Not Seen Yawning Observation: 1= 1-2x During Session Anxiety or Irritability: 1=Feels Anxious/Irritable Goose Flesh Skin: 0=Smooth Skin COWS Score: 16 CIWA Nausea/Vomitin Muscle Tremors: 2 Anxiety: 2 Agitation: 3 Paroxysmal Sweats: 4-Forehead w/Sweat Beads Orientation: 2-Disoriented Date<2 days Tacttile Disturbances: 0-None Auditory Disturbances: 0-None Visual Disturbances: 0-None Headache: 2-Mild CIWA-Ar Total Score: 18
[2019-05-10 14:26] VITALS: BMI 24.3
--- NOTE | 2019-05-10 14:56 | HP ---
COWS - Scale Resting Pulse: 0= [place] 80 or Below Sweatin= Beads of Sweat on Face Restless Observation: 1= Difficult to Sit Still Pupil Size: 1= Pupils >than Normal Bone or Joint Aches: 4=Acute Joint/Muscle Pain Runny Nose/ Eye Tearin= Runny Nose/Eyes GI Upset > 30mins: 2= Nausea/Diarrhea Tremor Observation: 1= Tremor [facility], Not Seen Yawning Observation: 1= 1-2x During Session Anxiety or Irritability: 1=Feels Anxious/Irritable Goose Flesh Skin: 0=Smooth Skin COWS Score: 16 CIWA Score Nausea/Vomitin Muscle Tremors: 2 Anxiety: 2 Agitation: 3 Paroxysmal Sweats: 4-Forehead w/Sweat Beads Orientation: 2-Disoriented Date<2 days Tacttile Disturbances: 0-None Auditory Disturbances: 0-None Visual Disturbances: 0-None Headache: 2-Mild CIWA-Ar Total Score: 18 - Admission Criteria OASAS Guidelines: Admission for Medically Managed Detox: Requires at least one of the followin. CIWA greater than 12 2. Seizures within the past 24 hours 3. Delirium tremens within the past 24 hours 4. Hallucinations within the past 24 hours 5. Acute intervention needed for co occurring medical disorder 6. Acute intervention needed for co occurring psychiatric disorder 7. Severe withdrawal that cannot be handled at a lower level of care (continued vomiting, continued diarrhea, abnormal vital signs) requiring intravenous medication and/or fluids 8. Admitting History and Physical - Admission History of Present Illness: This is a 58 year old male with PMH of Hep C, DM, HTN, HLD. He presented to the clinic for alcohol and heroin rehab. He has been drinking for over 30 years, drink 1/2 pint liquor with 1 6-pack of beer daily. Last drink was yesterday morning, 1/2 pint vodka with a few beers. No seizures, last blackout a few months ago. Was in detox here in November He has been using heroin for over 30 years, snorts 3-4 bags per day, used to inject for a short time but stopped years ago. Does not smoke. Never overdosed. Started using cocaine over 30 years ago, smokes approximately $60-80, no IV use. Last used yesterday, $50 worth. Smokes 1/2 ppd, started over 30 years ago. He endorses new onset lower extremity edema over the past few weeks, with no associated SOB, orthopnea, PND. He also has a grade 3 ulcer on plantar aspect of L toe, which he sustained months ago after a injury while walking on the street. He denies recent fevers, discharge or any fould smell from the ulcer. ROS: - Chills - Anxious - Headache - Nausea - Constipation - Joint aches and muscle pains - Anorexia - LE swelling PMH: - Hep C: diagnosed in 1999, never started treatment - DM: was previously on Metformin 500mg BID, has not been taking for several months - HTN PSH: - 4,5th toes amputated last year Social: - Lives with friend, will move in with sister after rehab, unemployed Physical exam: - AOx3 - Lungs: Clear B/L - CVS: RRR - GI: Soft, ND, NT - Extremities: 2+ pitting edema B/L, 4,5 toes on R foot amputated, 3rd toe on L foot amputated, 1x1 inch grade 3 ulcer on base of plantar aspect of L toe - [employer]: Motor 5/5, sensations intact - Smoking History Smoking history: Current every day smoker Have you smoked in the past 12 months: Yes Aproximately how many cigarettes per day: 15 - Alcohol/Substance Use Hx Alcohol Use: Yes Admission [facility] Allergies/Adverse Reactions: Allergies Allergy/AdvReac Type Severity Reaction Status Date / Time tomato Allergy Severe Rash Verified 05/10/19 14:17 No Known Drug Allergies Allergy Verified 05/10/19 14:17 pasta Allergy Severe Rash Uncoded 05/10/19 14:17 Patient History - Patient Medical History Hx Anemia: No Hx Asthma: No Hx Chronic Obstructive Pulmonary Disease (COPD): No Hx Cancer: No Hx Cardiac Disorders: No Hx Congestive Heart Failure: No Hx Hypertension: Yes (pt states he is borderline) Hx Hypercholesterolemia: No Hx Pacemaker: No HX Cerebrovascular Accident: No Hx Seizures: No Hx Dementia: No Hx Diabetes: Yes (Pt is non compliant with all meds.) Hx Gastrointestinal Disorders: Yes (Pt has a hx of GERD.) Hx Liver Disease: No Hx Genitourinary Disorders: No Hx Sexually Transmitted Disorders: No Hx Renal Disease (ESRD): No Hx Thyroid Disease: No Hx Human Immunodeficiency Virus (HIV): No (Negative 2018) Hx Hepatitis C: Yes (Not on treatment) Hx Depression: Yes Hx Suicide Attempt: No (Denies suicide attempt / suicidal ideation at this time) Hx Bipolar Disorder: No Hx Schizophrenia: No - Patient Surgical History Past Surgical History: Yes Hx Neurologic Surgery: No Hx Cataract Extraction: No Hx Cardiac Surgery: No Hx Lung Surgery: No Hx Breast Surgery: No Hx Breast Biopsy: No Hx Abdominal Surgery: No Hx Appendectomy: No Hx Cholecystectomy: No Hx Genitourinary Surgery: No Hx Orthopedic Surgery: No Other Surgical History: Two toes amputated from L foot in 2014 and two toes from R foot Anesthesia Reaction: No - PPD History Previous Implant?: Yes Documented Results: Negative w/proof Implanted On Prior R Admission?: Yes Date: 11/30/18 Results: TB test QFT neg - Smoking Cessation Smoking history: Current every day smoker Have you smoked in the past 12 months: Yes Aproximately how many cigarettes per day: 15 Cigars Per Day: 0 Hx Chewing Tobacco Use: No Initiated information on smoking cessation: Yes 'Breaking Loose' booklet given: 05/10/19 - Substances abused Heroin Substance route: Injection Frequency: Daily Amount used: 5-6 bags Age of first use: 21 Date of last use: 05/09/19 Alcohol Substance route: Oral Frequency: Daily Amount used: 1/2-1 pint vodka or 6 pks beer Age of first use: 13 Date of last use: 05/09/19 Crack Substance route: Smoking Frequency: Daily Amount used: $50-100 Age of first use: 21 Date of last use: 05/09/19 Admission Physical Exam BHS - Vital Signs Vital Signs: Vital Signs - 24 hr 05/10/19 14:15 Temperature 96.3 F L Pulse Rate 80 Respiratory 18 Rate Blood Pressure 127/83 Breathalyzer - Breathalyzer Breathalyzer: 0 Urine Drug Screen - Test Device Lot number: [id number] Expiration date: 02/19/21 - Control Is test valid?: Yes - Results Drug screen NEGATIVE: No Urine drug screen results: FARZAD-Cocaine, FEN-Fentanyl, MOP-Opiates, MTD-Methadone Inpatient Rehab Admission - Rehab Decision to Admit Inpatient rehab admission?: No
[2019-05-10] MEDS ORDERED: MAGNESIUM HYDROX 2400MG/30ML ORAL SUSPENSION 30 ML CUP PO PRN (15:18)
[2019-05-10] MEDS ORDERED: chlordiazePOXIDE HCL 25 MG CAPSULE PO PRN (15:18)
[2019-05-10] MEDS ORDERED: hydrOXYzine PAMOATE 25 MG CAPSULE (FP) PO PRN (15:18)
[2019-05-10] MEDS ORDERED: BISMUTH SUBSALICYLATE 262 MG/15 ML BTL PO PRN (15:18)
[2019-05-10] MEDS ORDERED: ACETAMINOPHEN 325 MG TABLET (FP) PO PRN ×2 (15:18)
[2019-05-10] MEDS ORDERED: MENTHOL/PHENOL 1 EACH UD MM PRN (15:18)
[2019-05-10] MEDS ORDERED: MAGNESIUM CITRATE 300 ML BOTTLE PO PRN (15:18)
[2019-05-10] MEDS ORDERED: MAG HYDROX/AL HYDROX/SIMETH 30 ML UNIT-DOSE CUP PO PRN (15:18)
[2019-05-10] MEDS ORDERED: cloNIDine HCL 0.1 MG TABLET PO PRN (15:49)
[2019-05-10] MEDS ORDERED: METHADONE HCL 10 MG TABLET (FOR DETOX USE ONLY) PO ONE (15:49)
--- NOTE | 2019-05-10 16:28 | EKG ---
Test Reason : Blood Pressure : / mmHG Vent. Rate : 066 BPM Atrial Rate : 066 BPM P-R Int : 134 ms QRS Dur : 102 ms QT Int : 416 ms P-R-T Axes : 049 033 005 degrees QTc Int : 436 ms NORMAL SINUS RHYTHM NONSPECIFIC T WAVE ABNORMALITY ABNORMAL ECG WHEN COMPARED WITH ECG OF 29-NOV-2018 21:18, NO SIGNIFICANT CHANGE WAS FOUND Confirmed by MD ARREDONDO MOYSES ([id number]) on 05/10/2019 4:28:05 PM Referred By: YENI Confirmed By:MAYTE ARREDONDO MD
[2019-05-10] MEDS: chlordiazePOXIDE HCL 25 MG CAPSULE PO SCH ×2 (16:58→22:41)
[2019-05-10] MEDS: INSULIN SLIDING SCALE (NOVOLOG) 1 VIAL SQ SCH ×2 (16:58→22:41)
[2019-05-10] MEDS: THIAMINE HCL 100 MG TABLET (FP) PO SCH (21:54)
[2019-05-11] MEDS: chlordiazePOXIDE HCL 25 MG CAPSULE PO SCH ×4 (07:05→22:29)
[2019-05-11] MEDS ORDERED: METHADONE HCL 10 MG TABLET (FOR DETOX USE ONLY) ONE (09:20)
[2019-05-11] MEDS ORDERED: METHADONE HCL 5 MG TABLET (FOR DETOX USE ONLY) ONE (09:20)
--- NOTE | 2019-05-11 09:34 | PN ---
Teaching Attending Note Name of Resident: Sebastian Leigh ATTENDING PHYSICIAN STATEMENT I saw and evaluated the patient. I reviewed the resident's note and discussed the case with the resident. I agree with the resident's findings and plan as documented. SUBJECTIVE: Agree with subjective resident findings OBJECTIVE: Agree with objective resident findings ASSESSMENT AND PLAN: Agree with plan to admit patient.
[2019-05-11] MEDS ORDERED: METHADONE (DETOX) 20 MG, METHADONE (DETOX) 5 MG PO ONE (10:00)
[2019-05-11] MEDS: PRENATAL VITAMINS W/ FOLIC ACID TABLET (FP) PO SCH (10:45)
[2019-05-11] MEDS: NICOTINE 21 MG/24 HOURS TOPICAL PATCH TD SCH (10:46)
[2019-05-11] MEDS: INSULIN SLIDING SCALE (NOVOLOG) 1 VIAL SQ SCH ×2 (10:46→17:43)
[2019-05-11 11:55] LABS: HEMATOCRIT 34.7 % (35.4-49); HEMOGLOBIN 11.6 GM/dL (11.7-16.9); MCH 28.1 pg (25.7-33.7); MCHC 33.5 g/dl (32.0-35.9); MEAN PLT VOLUME 8.5 fl (7.5-11.1); PLATELET COUNT 246 K/MM3 (134-434); RBC 4.13 M/mm3 (4.00-5.60); RDW 15.3 % (11.9-15.9); WHITE BLOOD COUNT 6.1 K/mm3 (4.0-10.0)
[2019-05-11 11:58] LABS: ALBUMIN 2.4 g/dl (3.4-5.0); BILIRUBIN,TOTAL 0.1 mg/dL (0.2-1); BLOOD UREA NITROGEN 13.3 mg/dL (7-18); CALCIUM 8.4 mg/dL (8.5-10.1); CREATININE 0.6 mg/dL (0.55-1.3); TOT PROT 7.3 g/dl (6.4-8.2)
--- NOTE | 2019-05-11 15:04 | PN ---
S CIWA - CIWA Score Nausea/Vomitin-Mild Nausea/No Vomiting Muscle Tremors: 1-None Visible, but [place] Anxiety: 1-Mildly Anxious Agitation: 1-Slight > Activity Paroxysmal Sweats: 2 Orientation: 0-Oriented Tacttile Disturbances: 1-Very Mild Itch/Numbness Auditory Disturbances: 0-None Visual Disturbances: 0-None Headache: 0-None Present CIWA-Ar Total Score: 7 BHS COWS - Scale Resting Pulse: 0= [place] 80 or Below Sweatin= Chills/Flushing Restless Observation: 1= Difficult to Sit Still Pupil Size: 1= Pupils >than Normal Bone or Joint Aches: 1= Mild Discomfort Runny Nose/ Eye Tearin= Nasal Congestion GI Upset > 30mins: 0= None Tremor Observation of Outstretched Hands: 1= Tremor [place], Not Seen Yawning Observation: 0= None Anxiety or Irritability: 1=Feels Anxious/Irritable Goose Flesh Skin: 0=Smooth Skin COWS Score: 7 S Progress Note (SOAP) Subjective: interrupted sleep, sweats, lbp Objective: 05/11/19 15:01 Vital Signs Temperature 97.7 F 05/11/19 09:30 Pulse Rate 69 05/11/19 09:30 Respiratory Rate 19 05/11/19 09:30 Blood Pressure 148/90 05/11/19 09:30 O2 Sat by Pulse Oximetry (%) Laboratory Tests 05/10/19 05/10/19 05/10/19 15:22 16:56 21:52 WBC RBC Hgb Hct MCV MCH MCHC RDW Plt Count MPV Sodium Potassium Chloride Carbon Dioxide Anion Gap BUN Creatinine Est GFR (CKD-EPI)AfAm Est GFR (CKD-EPI)NonAf POC Glucometer 154 147 131 Random Glucose Calcium Total Bilirubin AST ALT Alkaline Phosphatase Total Protein Albumin 05/11/19 05/11/19 07:35 07:35 WBC 6.1 RBC 4.13 Hgb 11.6 L Hct 34.7 L MCV 84.0 MCH 28.1 MCHC 33.5 RDW 15.3 Plt Count 246 MPV 8.5 Sodium 138 Potassium 4.0 Chloride 107 Carbon Dioxide 25 Anion Gap 6 L BUN 13.3 Creatinine 0.6 Est GFR (CKD-EPI)AfAm 129.36 Est GFR (CKD-EPI)NonAf 111.61 POC Glucometer Random Glucose 142 H Calcium 8.4 L Total Bilirubin 0.1 L AST 18 ALT 17 Alkaline Phosphatase 95 Total Protein 7.3 Albumin 2.4 L pt aox3 in nad ambulating Assessment: 05/11/19 15:03 withdrawal sx's dm hcv 05/11/19 15:04 Plan: cont. detox increase fluids daily bgm
[2019-05-11] MEDS: THIAMINE HCL 100 MG TABLET (FP) PO SCH (22:29)
[2019-05-12] MEDS ORDERED: INSULIN SLIDING SCALE (NOVOLOG) 1 VIAL SQ ONE ×2 (05:43→11:07)
[2019-05-12] MEDS: chlordiazePOXIDE HCL 25 MG CAPSULE PO SCH ×4 (06:22→22:33)
[2019-05-12] MEDS: INSULIN SLIDING SCALE (NOVOLOG) 1 VIAL SQ SCH ×2 (06:22→11:17)
[2019-05-12] MEDS ORDERED: METHADONE HCL 10 MG TABLET (FOR DETOX USE ONLY) PO ONE (10:00)
[2019-05-12] MEDS: PRENATAL VITAMINS W/ FOLIC ACID TABLET (FP) PO SCH (10:36)
[2019-05-12] MEDS: NICOTINE 21 MG/24 HOURS TOPICAL PATCH TD SCH (10:36)
--- NOTE | 2019-05-12 12:21 | PN ---
[facility] CIWA - CIWA Score Nausea/Vomitin-No Nausea/No Vomiting Muscle Tremors: 1-None Visible, but [place] Anxiety: 1-Mildly Anxious Agitation: 1-Slight > Activity Paroxysmal Sweats: No Perspiration Orientation: 0-Oriented Tacttile Disturbances: 0-None Auditory Disturbances: 0-None Visual Disturbances: 0-None Headache: 0-None Present CIWA-Ar Total Score: 3 S COWS - Scale Resting Pulse: 1= [place] 81-100 Sweatin= Chills/Flushing Restless Observation: 1= Difficult to Sit Still Pupil Size: 1= Pupils >than Normal Bone or Joint Aches: 1= Mild Discomfort Runny Nose/ Eye Tearin= None GI Upset > 30mins: 0= None Tremor Observation of Outstretched Hands: 0= None Yawning Observation: 0= None Anxiety or Irritability: 0= None Goose Flesh Skin: 0=Smooth Skin COWS Score: 5 S Progress Note (SOAP) Subjective: Pt admitted 2 days ago for dual detox. Pt has no complaints today. O: Vital Signs - 24 hr 05/11/19 05/11/19 05/12/19 16:31 21:40 00:31 Temperature 99.1 F 97.5 F L Pulse Rate 82 90 Respiratory 19 17 18 Rate Blood Pressure 139/82 128/87 05/12/19 05/12/19 05/12/19 03:20 06:18 08:52 Temperature 97.0 F L 97.9 F Pulse Rate 69 90 Respiratory 18 18 18 Rate Blood Pressure 128/78 118/87 Laboratory Tests 05/10/19 05/10/19 05/10/19 15:22 16:56 21:52 WBC RBC Hgb Hct MCV MCH MCHC RDW Plt Count MPV Sodium Potassium Chloride Carbon Dioxide Anion Gap BUN Creatinine Est GFR (CKD-EPI)AfAm Est GFR (CKD-EPI)NonAf POC Glucometer 154 147 131 Random Glucose Calcium Total Bilirubin AST ALT Alkaline Phosphatase Total Protein Albumin RPR Titer 05/11/19 05/11/19 05/11/19 07:35 07:35 07:35 WBC 6.1 RBC 4.13 Hgb 11.6 L Hct 34.7 L MCV 84.0 MCH 28.1 MCHC 33.5 RDW 15.3 Plt Count 246 MPV 8.5 Sodium 138 Potassium 4.0 Chloride 107 Carbon Dioxide 25 Anion Gap 6 L BUN 13.3 Creatinine 0.6 Est GFR (CKD-EPI)AfAm 129.36 Est GFR (CKD-EPI)NonAf 111.61 POC Glucometer Random Glucose 142 H Calcium 8.4 L Total Bilirubin 0.1 L AST 18 ALT 17 Alkaline Phosphatase 95 Total Protein 7.3 Albumin 2.4 L RPR Titer Nonreactive 05/12/19 05/12/19 05:34 10:40 WBC RBC Hgb Hct MCV MCH MCHC RDW Plt Count MPV Sodium Potassium Chloride Carbon Dioxide Anion Gap BUN Creatinine Est GFR (CKD-EPI)AfAm Est GFR (CKD-EPI)NonAf POC Glucometer 169 173 Random Glucose Calcium Total Bilirubin AST ALT Alkaline Phosphatase Total Protein Albumin RPR Titer mild anemia PE: pt has ulcer on plantar aspect of each foot- R foot smaller ulcer, L foot- with dime sized ulcer- dry, no drainage, no redness or warmth, dressing change daily- clean with NS and place DSD a/p : DUal detox- continue with methadone and librium detox protocols dressing change DM- f/s good
[2019-05-12] MEDS: MELATONIN 5 MG TABLETS PO PRN (22:33)
[2019-05-12] MEDS: THIAMINE HCL 100 MG TABLET (FP) PO SCH (22:33)
[2019-05-12] MEDS: METHOCARBAMOL 500 MG TABLET PO PRN (22:33)
[2019-05-12] MEDS: IBUPROFEN 400 MG TABLET (FP) PO PRN (22:34)
[2019-05-13] MEDS ORDERED: chlordiazePOXIDE HCL 10 MG CAPSULE PO PRN
[2019-05-13] MEDS: chlordiazePOXIDE HCL 10 MG CAPSULE PO SCH ×4 (06:21→22:01)
[2019-05-13] MEDS: INSULIN SLIDING SCALE (NOVOLOG) 1 VIAL SQ SCH ×3 (07:22→17:19)
[2019-05-13] MEDS ORDERED: METHADONE HCL 10 MG TABLET (FOR DETOX USE ONLY) ONE (09:01)
[2019-05-13] MEDS ORDERED: METHADONE HCL 5 MG TABLET (FOR DETOX USE ONLY) ONE (09:01)
[2019-05-13] MEDS ORDERED: METHADONE (DETOX) 10 MG, METHADONE (DETOX) 5 MG PO ONE (10:00)
[2019-05-13] MEDS: PRENATAL VITAMINS W/ FOLIC ACID TABLET (FP) PO SCH (10:25)
[2019-05-13] MEDS: NICOTINE 21 MG/24 HOURS TOPICAL PATCH TD SCH (10:25)
--- NOTE | 2019-05-13 13:20 | PN ---
S CIWA - CIWA Score Nausea/Vomitin-No Nausea/No Vomiting Muscle Tremors: 1-None Visible, but [place] Anxiety: 1-Mildly Anxious Agitation: 1-Slight > Activity Paroxysmal Sweats: 2 Orientation: 0-Oriented Tacttile Disturbances: 2-Mild Itch/Numbness/Burn Auditory Disturbances: 0-None Visual Disturbances: 0-None Headache: 0-None Present CIWA-Ar Total Score: 7 S COWS - Scale Resting Pulse: 1= [place] 81-100 Sweatin= Chills/Flushing Restless Observation: 1= Difficult to Sit Still Pupil Size: 1= Pupils >than Normal Bone or Joint Aches: 1= Mild Discomfort Runny Nose/ Eye Tearin= None GI Upset > 30mins: 0= None Tremor Observation of Outstretched Hands: 0= None Yawning Observation: 0= None Anxiety or Irritability: 1=Feels Anxious/Irritable Goose Flesh Skin: 0=Smooth Skin COWS Score: 6 S Progress Note (SOAP) Subjective: interrupted sleep sweats, left sole ulcerpain on ambulation Objective: 05/13/19 13:17 Vital Signs Temperature 98.2 F 05/13/19 08:58 Pulse Rate 85 05/13/19 08:58 Respiratory Rate 18 05/13/19 08:58 Blood Pressure 120/84 05/13/19 08:58 O2 Sat by Pulse Oximetry (%) Laboratory Tests 05/10/19 05/10/19 05/10/19 15:22 16:56 21:52 WBC RBC Hgb Hct MCV MCH MCHC RDW Plt Count MPV Sodium Potassium Chloride Carbon Dioxide Anion Gap BUN Creatinine Est GFR (CKD-EPI)AfAm Est GFR (CKD-EPI)NonAf POC Glucometer 154 147 131 Random Glucose Calcium Total Bilirubin AST ALT Alkaline Phosphatase Total Protein Albumin RPR Titer 05/11/19 05/11/19 05/11/19 07:35 07:35 07:35 WBC 6.1 RBC 4.13 Hgb 11.6 L Hct 34.7 L MCV 84.0 MCH 28.1 MCHC 33.5 RDW 15.3 Plt Count 246 MPV 8.5 Sodium 138 Potassium 4.0 Chloride 107 Carbon Dioxide 25 Anion Gap 6 L BUN 13.3 Creatinine 0.6 Est GFR (CKD-EPI)AfAm 129.36 Est GFR (CKD-EPI)NonAf 111.61 POC Glucometer Random Glucose 142 H Calcium 8.4 L Total Bilirubin 0.1 L AST 18 ALT 17 Alkaline Phosphatase 95 Total Protein 7.3 Albumin 2.4 L RPR Titer Nonreactive 05/12/19 05/12/19 05/12/19 05:34 10:40 16:49 WBC RBC Hgb Hct MCV MCH MCHC RDW Plt Count MPV Sodium Potassium Chloride Carbon Dioxide Anion Gap BUN Creatinine Est GFR (CKD-EPI)AfAm Est GFR (CKD-EPI)NonAf POC Glucometer 169 173 177 Random Glucose Calcium Total Bilirubin AST ALT Alkaline Phosphatase Total Protein Albumin RPR Titer 05/12/19 05/13/19 05/13/19 22:30 06:17 10:30 WBC RBC Hgb Hct MCV MCH MCHC RDW Plt Count MPV Sodium Potassium Chloride Carbon Dioxide Anion Gap BUN Creatinine Est GFR (CKD-EPI)AfAm Est GFR (CKD-EPI)NonAf POC Glucometer 201 243 99 Random Glucose Calcium Total Bilirubin AST ALT Alkaline Phosphatase Total Protein Albumin RPR Titer pt in bed aox3 in nad left sole ulcer dry ,w/o d/c ; rt sole smaller ulcer Assessment: 05/13/19 13:18 withdrawal sx's sole ulcers - need dressing with gauze to cushion ulcers Plan: cont. detox increase fluids sole dressing with gauze for cushion .
[2019-05-13] MEDS: IBUPROFEN 400 MG TABLET (FP) PO PRN ×2 (14:08→22:02)
[2019-05-13] MEDS: METHOCARBAMOL 500 MG TABLET PO PRN (14:09)
[2019-05-13] MEDS ORDERED: INSULIN SLIDING SCALE (NOVOLOG) 1 VIAL SQ ONE (17:23)
[2019-05-13] MEDS: THIAMINE HCL 100 MG TABLET (FP) PO SCH (22:01)
[2019-05-13] MEDS: MELATONIN 5 MG TABLETS PO PRN (22:04)
[2019-05-14] MEDS ORDERED: chlordiazePOXIDE HCL 10 MG CAPSULE PO SCH (05:00)
[2019-05-14] MEDS: METHOCARBAMOL 500 MG TABLET PO PRN (05:36)
[2019-05-14] MEDS: IBUPROFEN 400 MG TABLET (FP) PO PRN (05:37)
[2019-05-14] MEDS: INSULIN SLIDING SCALE (NOVOLOG) 1 VIAL SQ SCH ×5 (08:25→08:29)
[2019-05-14 09:38] VITALS: BP 120/79; PULSE 99; TEMP 97.5
[2019-05-14] MEDS ORDERED: METHADONE HCL 10 MG TABLET (FOR DETOX USE ONLY) PO ONE (10:00)
--- NOTE | 2019-05-14 17:49 | DS ---
[facility] Detox Discharge Summary Admission Date: 05/10/19 Discharge Date: 05/14/19 - History Present History: Alcohol Dependence, Cocaine Dependence, Opioid Dependence Additional Comments: DESPITE EFFORTS BY ELECTRONICS SPECIALIST AND BY NURSING STAFF TO ADDRESS PATIENT'S MEDICAL NEEDS / CONCERNS, PATIENT DOES NOT WISH TO REMAIN TO COMPLETE DETOX REGIMEN. RISKS OF LEAVING DETOX UNIT AGAINST MEDICAL ADVICE AND PRIOR TO COMPLETION OF DETOX REGIMEN EXPLAINED TO PATIENT. PATIENT ADVISED TO GO IMMEDIATELY TO NEAREST ER SHOULD ANY INTOLERABLE WITHDRAWAL / DETOX SYMPTOMS DEVELOP AT ANY TIME. PATIENT WAS AGITATED AND DIFFICULT TO COMMUNICATION WITH PRIOR TO LEAVING DETOX UNIT. THUS, PRE-DISCHARGE MEDICAL ASSESSMENT AND INQUIRY ABOUT AFTERCARE MEDICATION WAS DIFFICULT AND LIMITED. Pertinent Past History: HTN (Borderline), Type II DM, Hyperlipidemia, Hep C, Nicotine Dependence. - Physical Exam Results Vital Signs: Vital Signs Temperature 97.5 F L 05/14/19 08:45 Pulse Rate 99 H 05/14/19 08:45 Respiratory Rate 18 05/14/19 08:45 Blood Pressure 120/79 05/14/19 08:45 O2 Sat by Pulse Oximetry (%) Pertinent Admission Physical Exam Findings: WITHDRAWAL SYMPTOMS. Laboratory Tests 05/10/19 05/10/19 05/10/19 15:22 16:56 21:52 WBC RBC Hgb Hct MCV MCH MCHC RDW Plt Count MPV Sodium Potassium Chloride Carbon Dioxide Anion Gap BUN Creatinine Est GFR (CKD-EPI)AfAm Est GFR (CKD-EPI)NonAf POC Glucometer 154 147 131 Random Glucose Calcium Total Bilirubin AST ALT Alkaline Phosphatase Total Protein Albumin RPR Titer 05/11/19 05/11/19 05/11/19 07:35 07:35 07:35 WBC 6.1 RBC 4.13 Hgb 11.6 L Hct 34.7 L MCV 84.0 MCH 28.1 MCHC 33.5 RDW 15.3 Plt Count 246 MPV 8.5 Sodium 138 Potassium 4.0 Chloride 107 Carbon Dioxide 25 Anion Gap 6 L BUN 13.3 Creatinine 0.6 Est GFR (CKD-EPI)AfAm 129.36 Est GFR (CKD-EPI)NonAf 111.61 POC Glucometer Random Glucose 142 H Calcium 8.4 L Total Bilirubin 0.1 L AST 18 ALT 17 Alkaline Phosphatase 95 Total Protein 7.3 Albumin 2.4 L RPR Titer Nonreactive 05/12/19 05/12/19 05/12/19 05:34 10:40 16:49 WBC RBC Hgb Hct MCV MCH MCHC RDW Plt Count MPV Sodium Potassium Chloride Carbon Dioxide Anion Gap BUN Creatinine Est GFR (CKD-EPI)AfAm Est GFR (CKD-EPI)NonAf POC Glucometer 169 173 177 Random Glucose Calcium Total Bilirubin AST ALT Alkaline Phosphatase Total Protein Albumin RPR Titer 05/12/19 05/13/19 05/13/19 22:30 06:17 10:30 WBC RBC Hgb Hct MCV MCH MCHC RDW Plt Count MPV Sodium Potassium Chloride Carbon Dioxide Anion Gap BUN Creatinine Est GFR (CKD-EPI)AfAm Est GFR (CKD-EPI)NonAf POC Glucometer 201 243 99 Random Glucose Calcium Total Bilirubin AST ALT Alkaline Phosphatase Total Protein Albumin RPR Titer 05/13/19 16:21 WBC RBC Hgb Hct MCV MCH MCHC RDW Plt Count MPV Sodium Potassium Chloride Carbon Dioxide Anion Gap BUN Creatinine Est GFR (CKD-EPI)AfAm Est GFR (CKD-EPI)NonAf POC Glucometer 156 Random Glucose Calcium Total Bilirubin AST ALT Alkaline Phosphatase Total Protein Albumin RPR Titer LABS NOTED. - Medication Discharge Medications: Ambulatory Orders Metformin HCl [Glucophage] 500 mg PO BID 05/10/19 - Diagnosis (1) Alcohol dependence with uncomplicated withdrawal Status: Acute (2) Uncomplicated opioid dependence Status: Acute (3) Cocaine dependence Status: Chronic Qualifiers: Substance use status: uncomplicated Qualified Code(s): F14.20 - Cocaine dependence, uncomplicated (4) Nicotine dependence Status: Acute Qualifiers: Nicotine product type: cigarettes Substance use status: in withdrawal Qualified Code(s): F17.213 - Nicotine dependence, cigarettes, with withdrawal - AMA Did Patient Leave Against Medical Advice: Yes (PATIENT DID NOT WISH TO REMAIN TO COMPLETE DETOX REGIMEN.)
[2019-05-15] MEDS ORDERED: chlordiazePOXIDE HCL 10 MG CAPSULE PO ONE (05:00)
[2019-05-15] MEDS ORDERED: METHADONE HCL 5 MG TABLET (FOR DETOX USE ONLY) PO ONE (06:00)
== END 2019-05-14 09:45 | disposition left against medical advice (07) | DRG 770 ==
LOC: YASAS 13:07 → Y6N 15:28
PROVIDERS: ADMIT Allergy & Immunology; ATTEND Allergy & Immunology
PROC: HZ2ZZZZ Detoxification Services for Substance Abuse Treatment (ICD-10-PCS; principal; 2019-05-10)
DX: F10.230 Alcohol dependence with withdrawal, uncomplicated (principal); F11.20 Opioid dependence, uncomplicated; F14.20 Cocaine dependence, uncomplicated; F17.210 Nicotine dependence, cigarettes, uncomplicated; L97.421 Non-pressure chronic ulcer of left heel and midfoot limited to breakdown of skin; L97.411 Non-pressure chronic ulcer of right heel and midfoot limited to breakdown of skin; I10 Essential (primary) hypertension; K21.9 Gastro-esophageal reflux disease without esophagitis; E11.9 Type 2 diabetes mellitus without complications; Z79.84 Long term (current) use of oral hypoglycemic drugs; E78.5 Hyperlipidemia, unspecified; B18.2 Chronic viral hepatitis C; Z89.412 Acquired absence of left great toe; Z89.411 Acquired absence of right great toe
CPT/HCPCS: 36415; 80053; 82962; 85027; 86593; 93005; 93010